=== PATIENT | female | born 1930 | race Caucasian/White ===

== ENCOUNTER 2016-12-11 02:22 | Inpatient (IN) | payer MEDICARE, BC ==
[~2016-12-11] VITALS: Ht 157.5 cm; Wt 40.4 kg
[2016-12-11] VITALS (7 sets, daily range): BP systolic 128–155; BP diastolic 68–89
[2016-12-11] MEDS ORDERED: CILOSTAZOL100 MG PO (02:50)
[2016-12-11] MEDS ORDERED: ENALAPRIL MALE2.5 MG ORAL (02:50)
[2016-12-11] MEDS ORDERED: Ampicillin/Sulbactam Sod 3 GM in NS 110 ML IVPB ONE (03:00)
--- NOTE | 2016-12-11 03:04 | Emergency Room Report ---
History of Present Illness General Chief Complaint: Pain Source: Patient Present Illness HPI Patient present with complaints of right hand swelling and redness Pain is 8/10 Patient reports ongoing for the past several days Denies any trauma Denies any fevers However her hand is feel warm to her Denies any elbow pain denies any recent travel or other trauma pain is worse with touch Allergies: Coded Allergies: CORN (Verified Allergy, Unknown, 12/11/16) Uncoded Allergies: GARBANZOS (Allergy, Unknown, 12/11/16) MUSHROOMS (Allergy, Unknown, 12/11/16) PEANU BUTTER (Allergy, Unknown, 12/11/16) STRAWBERRIES (Allergy, Unknown, 12/11/16) Patient History Past Medical History: see triage record Pertinent Family History: none Reviewed Nursing Documentation: PMH: Agreed, PSxH: Agreed Nursing Documentation-PMH Hx Hypertension: Yes Review of Systems All Other Systems: negative except mentioned in HPI Physical Exam Vital Signs Date Time Temp Pulse Resp B/P Pulse Ox O2 Delivery O2 Flow Rate FiO2 12/11/16 02:42 98.2 59 18 153/80 96 Room Air Sp02 EP Interpretation: reviewed, normal General Appearance: no apparent distress Head: normocephalic, atraumatic Eyes: bilateral eye EOMI, bilateral eye PERRL ENT: normal pharynx Neck: other - Severe kyphosis, component of scoliosis as well Respiratory: chest non-tender, lungs clear Cardiovascular #1: regular rate, rhythm, no edema Gastrointestinal: non tender, soft Musculoskeletal: other - Patient has obvious evidence of multiple arthritic changes, swelling of her joints Neurologic: alert, oriented x3, responsive Skin: other - Arthritic changes to the right hand, there is associated erythema and swelling as well however, erythema of the lateral hand as well Lymphatic: no adenopathy Medical Decision Making Diagnostic Impression: Primary Impression: Cellulitis Additional Impression: Rheumatoid arthritis ER Course Multiple differentials considered Patient's imaging study shows severe arthritic changes There is consideration for rheumatoid arthritis flareup Consideration for gout Consideration for cellulitis Patient has broad-spectrum antibiotics initiated given the area in the size of the erythema patient was admitted for further inpatient care Labs Test 12/11/16 03:10 12/11/16 03:30 White Blood Count 5.2 K/UL (4.8-10.8) Red Blood Count 5.19 M/UL (4.70-6.10) Hemoglobin 16.1 G/DL (14.2-18.0) Hematocrit 48.8 % (42.0-52.0) Mean Corpuscular Volume 94 FL (80-99) Mean Corpuscular Hemoglobin 31.0 PG (27.0-31.0) Mean Corpuscular Hemoglobin Concent 33.0 G/DL (32.0-36.0) Red Cell Distribution Width 12.3 % (11.6-14.8) Platelet Count 241 K/UL (150-450) Mean Platelet Volume 9.4 FL (6.5-10.1) Neutrophils (%) (Auto) 65.2 % (45.0-75.0) Lymphocytes (%) (Auto) 23.0 % (20.0-45.0) Monocytes (%) (Auto) 10.5 % (1.0-10.0) Eosinophils (%) (Auto) 0.3 % (0.0-3.0) Basophils (%) (Auto) 0.9 % (0.0-2.0) Sodium Level 139 mEQ/L (135-145) Potassium Level 4.1 mEQ/L (3.4-4.9) Chloride Level 98 mEQ/L (98-107) Carbon Dioxide Level 28 mEQ/L (20-30) Anion Gap 13 (5-15) Blood Urea Nitrogen 15 mg/dL (7-23) Creatinine 0.9 mg/dL (0.7-1.2) Estimat Glomerular Filtration Rate mL/min (>60) Glucose Level 105 mg/dL (74-106) Lactic Acid Level 0.60 mmol/L (0.66-2.22) Calcium Level 9.5 mg/dL (8.6-10.2) Total Bilirubin 0.9 mg/dL (0.0-1.2) Aspartate Amino Transf (AST/SGOT) 21 U/L (5-40) Alanine Aminotransferase (ALT/SGPT) 11 U/L (3-41) Alkaline Phosphatase 68 U/L (40-129) Total Creatine Kinase 92 U/L (38-174) Total Protein 7.0 g/dL (6.6-8.7) Albumin 4.2 g/dL (3.5-5.2) Globulin 2.8 g/dL Albumin/Globulin Ratio 1.5 (1.0-2.7) Urine Color Yellow Urine Appearance Clear Urine pH 6.5 (4.5-8.0) Urine Specific [place] 1.015 (1.005-1.035) Urine Protein 2+ (NEGATIVE) Urine Glucose (UA) Negative (NEGATIVE) Urine Ketones 1+ (NEGATIVE) Urine Occult Blood 2+ (NEGATIVE) Urine Nitrite Negative (NEGATIVE) Urine Bilirubin Negative (NEGATIVE) Urine Urobilinogen 1 MG/DL (0.0-1.0) Urine Leukocyte Esterase 3+ (NEGATIVE) Urine RBC 2-4 /HPF (0 - 0) Urine WBC 15-20 /HPF (0 - 0) Urine Squamous Epithelial Cells Few /LPF (NONE/OCC) Urine Bacteria Few /HPF (NONE) Other X-Ray Diagnostic Results Other X-Ray Diagnostic Results : EP Interpretation: Yes Findings: no dislocation, other - Soft tissue swelling, severe arthritic changes, several areas in the metacarpal region cannot rule out obvious fracture Number of Views: 3 - Right hand Last Vital Signs Date Time Temp Pulse Resp B/P Pulse Ox O2 Delivery O2 Flow Rate FiO2 12/11/16 02:42 98.2 59 18 153/80 96 Room Air Status: improved Disposition: ADMITTED INPATIENT Condition: Serious Referrals: NON PHYSICIAN (PCP) CHETNA DIANE D.O. Dec 11, 2016 03:04
[2016-12-11] MEDS ORDERED: Unasyn 3gm Inj ONE (03:24)
[2016-12-11 03:32] LABS: BASOPHILS % (AUTO) 0.9 % (0.0-2.0); EOSINOPHILS % (AUTO) 0.3 % (0.0-3.0); MEAN CORPUSCULAR VOLUME 94 FL (80-99); MEAN PLATELET VOLUME 9.4 FL (6.5-10.1); MONOCYTES % (AUTO) 10.5 % (1.0-10.0); NEUTROPHILS % (AUTO) 65.2 % (45.0-75.0); PLATELET COUNT 241 K/UL (150-450); RED BLOOD COUNT 5.19 M/UL (4.70-6.10); RED CELL DISTRIBUTION WIDTH 12.3 % (11.6-14.8); WHITE BLOOD COUNT 5.2 K/UL (4.8-10.8)
[2016-12-11 03:46] LABS: APPEARANCE,URINE CLEAR; KETONES,URINE 1+ (NEGATIVE); LEUKOCYTE ESTERASE ,URINE 3+ (NEGATIVE); NITRITE,URINE NEGATIVE (NEGATIVE); PH,URINE 6.5 (4.5-8.0); PROTEIN,URINE 2+ (NEGATIVE); UROBILINOGEN,URINE 1 MG/DL (0.0-1.0)
[2016-12-11 03:49] LABS: ALANINE AMINOTRANSFERASE 11 U/L (3-41); ALBUMIN/GLOBULIN RATIO 1.5 (1.0-2.7); ANION GAP 13 (5-15); ASPARTATE AMINO TRANSFERASE 21 U/L (5-40); CALCIUM 9.5 mg/dL (8.6-10.2); CARBON DIOXIDE 28 mEQ/L (20-30); CHLORIDE 98 mEQ/L (98-107); CREATININE 0.9 mg/dL (0.7-1.2); HEMOLYSIS 10; POTASSIUM 4.1 mEQ/L (3.4-4.9); SODIUM 139 mEQ/L (135-145)
[2016-12-11 04:00] LABS: CKMB 5.1 ng/mL (< 6.7)
[2016-12-11 04:01] LABS: BACTERIA,URINE FEW /HPF; SQUAMOUS EPITHELIAL CELL,UR FEW /LPF (NONE/OCC); WBC,URINE 15-20 /HPF (0 - 0)
[2016-12-11] MEDS ORDERED: LORazepam Inj 2mg/ml 1ml IV PRN (06:45)
[2016-12-11] MEDS ORDERED: Mylanta II UD 30ml ORAL PRN (06:45)
[2016-12-11] MEDS ORDERED: HYDROmorphone 1mg/ml Carpuject IVP ONE (06:45)
[2016-12-11] MEDS ORDERED: Morphine Sulfate 2mg/ml Inj IVP PRN (06:45)
[2016-12-11] MEDS: Cefepime HCl 1 GM in D5W 55 ML IV SCH (08:20)
[2016-12-11] MEDS: Heparin 5000 units/ml inj SUBQ SCH ×2 (09:00→21:56)
[2016-12-11] MEDS: Enalapril 2.5mg tab ORAL SCH ×2 (09:00→21:46)
[2016-12-11] MEDS ORDERED: Vancomycin 1gm/D5W 275ml IVPB ONE ×2 (09:00)
[2016-12-11] MEDS: Cilostazol 100mg tab ORAL SCH ×2 (10:05→18:16)
--- NOTE | 2016-12-11 10:38 | Consultation ---
Consult Note Consult Note ID CONSULT: Anita# [id number] Assessment/Plan ASSESSMENT: 86 y/o female with: // Atraumatic right hand cellulitis vs gout vs RA flare - improved - XR: pending // Possible UTI - UCx pending // Afebrile without leukocytosis // RA ?flare ( none previous in right hand ) // No ABX allergies // Full Code PLAN: - continue empiric IV vancomycin, cefepime d# / pending cultures. Transition to PO soon, maybe as early as tomorrow - check RF, uric acid, ESR, CRP - f/u cultures - f/u imaging - monitor CBC, temperatures - monitor BMP d/w daughter at bedside Thanks! Will follow ANNALEE GIORDANO Dec 11, 2016 10:38
--- NOTE | 2016-12-11 16:36 | History & Physical ---
History and Physical History & Physicial Tam Rodriguez MD Dec 11, 2016 16:36
--- NOTE | 2016-12-11 18:48 | Consultation ---
DATE OF CONSULTATION: 12/11/2016 INFECTIOUS DISEASE CONSULTATION REFERRING PHYSICIAN: Tam Rodriguez M.D. REASON FOR CONSULTATION: Cellulitis. HISTORY OF PRESENT ILLNESS: This 86-year-old female with a history of rheumatoid arthritis, admitted on 12/11/2016 with atraumatic right hand swelling, pain, erythema and warmth. X-ray is pending. She is afebrile without leukocytosis. Urinalysis also suggest possible urinary tract infection. She has been started on empiric vancomycin and cefepime. Cultures are pending and ID now consulted to assist in management. PAST MEDICAL HISTORY: 1. Rheumatoid arthritis. 2. Hypertension. 3. Peripheral vascular disease. PAST SURGICAL HISTORY: None. MEDICATIONS: 1. Vancomycin day #1. 2. Cefepime day #1. 3. Pletal. 4. Vasotec. 5. Subcutaneous heparin. ALLERGIES: 1. [place] . 2. Garbanzos. 3. Mushrooms. 4. Peanut butter. 5. Strawberries. SOCIAL HISTORY: The patient lives locally and has family involved in her care. No active tobacco, alcohol, or illicit drug abuse. FAMILY HISTORY: Noncontributory. REVIEW OF SYSTEMS: As per history of present illness. Ten systems reviewed. All pertinent positives and negatives noted. PHYSICAL EXAMINATION: GENERAL: No apparent distress. Nontoxic appearing. VITAL SIGNS: Maximum temperature 98.2 degrees, blood pressure 133/72, heart rate in the 50s, respiratory rate 20, and saturating 99% on room air. CARDIOVASCULAR: Regular rate and rhythm. No murmurs. PULMONARY: Clear to auscultation bilaterally. ABDOMEN: Bowel sounds present. Soft, nondistended, and nontender. EXTREMITIES: Right hand erythema, edema, and warmth, changes consistent with rheumatoid arthritis. LABORATORY AND DIAGNOSTIC DATA: White blood cell count 5.8, hemoglobin 16.1, and platelets 241,000. Sodium is 139, potassium 4.1, chloride 98, bicarbonate 28, BUN 15, and creatinine 0.9. Lactic acid 0.6. Liver function tests within normal limits. MICROBIOLOGY: 1. On 12/11/2016, blood culture no growth to date. 2. On 12/11/2016, urine culture no growth to date. IMAGIN. Right hand x-ray pending. 2. Arterial and venous Doppler is pending. ASSESSMENT: 1. Atraumatic right hand cellulitis versus gout versus rheumatoid arthritis flare, improved overnight. X-ray is pending. 2. Possible urinary tract infection. Urine culture is pending. 3. Afebrile without leukocytosis. 4. Rheumatoid arthritis with question flare-up. No previous cellulitis in the right hand. 5. No antibiotic allergies. 6. Full Code. PLAN: 1. Continue empiric IV vancomycin and cefepime day #1 of 7, pending cultures. Transition to oral alternatives, may be as early as tomorrow. 2. Check rheumatoid factor, uric acid, ESR and CRP. 3. Follow up cultures. 4. Follow up imaging. 5. Monitor CBC and temperatures. 6. Monitor BMP. Thank you. We will follow. Yariel Bain M.D. DR: ACOSTA JOB#: [id number] CC: Nicolette Masters M.D. Arash Alborzi, M.D
[2016-12-11] MEDS ORDERED: Zolpidem 5mg tab ORAL PRN (21:00)
[2016-12-11] MEDS ORDERED: Miralax 17gm pkt ORAL PRN (21:00)
--- NOTE | 2016-12-11 21:18 | History and Physical Report ---
DATE OF ADMISSION: 12/11/2016 CHIEF COMPLAINT: Right hand swelling and redness. HISTORY OF PRESENT ILLNESS: This is a 86-year-old very delightful female with past medical history significant for osteoporosis, osteoarthritis, hypertension, dyslipidemia, appendectomy, hysterectomy and varicose veins of lower extremities, status post of vascular procedure, who was presented to the hospital complaining about right upper extremity, right hand swelling, redness and painful. She stated pain started about 24 hours ago, got progressively worsening, unable to move the hand and the pain was to the point that tramadol was not helping and subsequently the patient decided to come to the emergency room. Shortly after initial evaluation in the emergency room, the patient was admitted to the hospital with right hand cellulitis. The patient denies any trauma. Denies any fever or chills. Complained about the right hand warm feeling and denies any loss of consciousness. Denies any suicidal or homicidal ideation. Denies any recent travel. PAST MEDICAL HISTORY/PAST SURGICAL HISTORY: As above, history of osteoarthritis, osteoporosis, hypertension, dyslipidemia, appendectomy, hysterectomy and varicose veins surgery of lower extremity. MEDICATIONS: Medications at home is significant for enalapril 2.5 mg, cilostazol 100 mg twice a day, and Norvasc 10 mg p.o. daily. ALLERGIES: , mushroom, peanuts, phenobarbital and strawberry. No known drug allergies otherwise except these. SOCIAL HISTORY: The patient is ex-smoker, quit 5 years ago 50 years pack smoking history. She drinks two shots of vodka. She lives with her daughter. She denies any substance abuse. FAMILY HISTORY: Noncontributory. REVIEW OF SYSTEMS: Mostly as above. Denies any dysuria, frequency, hematuria or hematochezia. Denies any hemoptysis or hematochezia. Denies any suicidal or homicidal ideation. She walks at home with a cane and walker occasionally. She denies any loss of consciousness. Denies any fall or trauma. Denies any double vision. Denies any bowel or urinary incontinence. PHYSICAL EXAMINATION: GENERAL: The patient awake, responsive, no acute distress. VITAL SIGNS: On admission, temperature 98.2 degrees, pulse of 89, respiration 18, and blood pressure 153/80. HEENT: Pupils are equal and reactive to light. Extraocular movements are intact. NECK: Supple. No JVD. LUNGS: Good air entry. No wheezing or rales. HEART: S1 and S2. Distant heart sounds. No murmur or gallops. ABDOMEN: Soft, nondistended, and nontender. Positive bowel sounds. RECTAL: Refused and deferred. GENITOURINARY: Refused and deferred. EXTREMITIES: No cyanosis, clubbing, or edema. Varicose veins to bilateral lower extremities. Left upper extremity is swollen, tender to touch, mildly erythematous and the patient's hand has osteoarthritis with deformity of the fingers was noted was bilateral. NEUROLOGIC: Cranial Nerves II through XII are grossly intact. The patient moving all extremities. Gait was not assessed due to the patient's status. PSYCHIATRIC: Mood evaluation, the patient is anxious. LABORATORY AND DIAGNOSTIC DATA: Laboratory admission from the ER, WBC of 5.2, hemoglobin 16, hematocrit 48 and platelets 240,000. Sodium 139, potassium 4.1, chloride 98, bicarbonate 28, BUN 15, creatinine 0.9, and glucose 105. Lactic acid 0.60. Liver function essential unremarkable. Urinalysis +2 protein, +2 occult blood, +1 ketones, 15 to 20 WBC and +3 leukocytes. ASSESSMENT: 1. Right upper extremity cellulitis. 2. Possible urinary tract infection. 3. Osteoarthritis. 4. Hypertension. 5. Dyslipidemia. 6. Osteoporosis. PLAN: Admit the patient to Medical/Surgical. Discussed with the daughter extensively at bedside. Broad-spectrum antibiotics with vancomycin as well as cefepime. We will resume home medications, pain medication, cardiac diet, heparin subcutaneous for DVT and Code Status is Full Code. Follow up with an Infectious Disease consultation with Dr. Bain. Tam Rodriguez M.D. DR: JAMEL JOB#: [id number] CC:
--- NOTE | 2016-12-11 23:01 | Consultation ---
History of Present Illness General Chief Complaint: Pain Present Illness Allergies: Coded Allergies: CORN (Verified Allergy, Unknown, 12/11/16) Uncoded Allergies: GARBANZOS (Allergy, Unknown, 12/11/16) MUSHROOMS (Allergy, Unknown, 12/11/16) PEANU BUTTER (Allergy, Unknown, 12/11/16) STRAWBERRIES (Allergy, Unknown, 12/11/16) Medication History Scheduled Cilostazol* (Cilostazol*), 100 MG PO TWICE A DAY, (Reported) Enalapril Maleate* (Enalapril Maleate*), 2.5 MG ORAL EVERY 12 HOURS, (Reported) Patient History Healthcare decision maker pt alert and oriented Resuscitation status Full Code Advanced Directive on File Physical Exam Last 24 Hour Vital Signs Date Time Temp Pulse Resp B/P Pulse Ox O2 Delivery O2 Flow Rate FiO2 12/11/16 21:46 128/77 12/11/16 20:00 97.7 19 128/77 94 Room Air 12/11/16 16:00 98.2 87 20 149/69 94 Room Air 12/11/16 12:00 97.0 54 18 128/68 95 Room Air 12/11/16 11:00 59 18 133/75 12/11/16 09:00 133/72 12/11/16 08:00 97.5 50 22 143/79 99 Room Air 12/11/16 07:38 97.5 12/11/16 07:22 98.2 52 18 155/89 96 Room Air 12/11/16 05:03 98.2 52 18 155/89 96 Room Air 12/11/16 02:42 98.2 59 18 153/80 96 Room Air Intake and Output 12/10/16 12/11/16 19:00 07:00 Intake Total 110 ml Balance 110 ml Intake IV Total 110 ml # Voids 1 Laboratory Tests Test 12/11/16 03:10 12/11/16 03:30 White Blood Count 5.2 K/UL (4.8-10.8) Red Blood Count 5.19 M/UL (4.70-6.10) Hemoglobin 16.1 G/DL (14.2-18.0) Hematocrit 48.8 % (42.0-52.0) Mean Corpuscular Volume 94 FL (80-99) Mean Corpuscular Hemoglobin 31.0 PG (27.0-31.0) Mean Corpuscular Hemoglobin Concent 33.0 G/DL (32.0-36.0) Red Cell Distribution Width 12.3 % (11.6-14.8) Platelet Count 241 K/UL (150-450) Mean Platelet Volume 9.4 FL (6.5-10.1) Neutrophils (%) (Auto) 65.2 % (45.0-75.0) Lymphocytes (%) (Auto) 23.0 % (20.0-45.0) Monocytes (%) (Auto) 10.5 % (1.0-10.0) H Eosinophils (%) (Auto) 0.3 % (0.0-3.0) Basophils (%) (Auto) 0.9 % (0.0-2.0) Sodium Level 139 mEQ/L (135-145) Potassium Level 4.1 mEQ/L (3.4-4.9) Chloride Level 98 mEQ/L (98-107) Carbon Dioxide Level 28 mEQ/L (20-30) Anion Gap 13 (5-15) Blood Urea Nitrogen 15 mg/dL (7-23) Creatinine 0.9 mg/dL (0.7-1.2) Estimat Glomerular Filtration Rate mL/min (>60) Glucose Level 105 mg/dL (74-106) Lactic Acid Level 0.60 mmol/L (0.66-2.22) L Calcium Level 9.5 mg/dL (8.6-10.2) Total Bilirubin 0.9 mg/dL (0.0-1.2) Aspartate Amino Transf (AST/SGOT) 21 U/L (5-40) Alanine Aminotransferase (ALT/SGPT) 11 U/L (3-41) Alkaline Phosphatase 68 U/L (40-129) Total Creatine Kinase 92 U/L (38-174) Creatine Kinase MB 5.1 ng/mL (< 6.7) Creatine Kinase MB Relative Index 5.5 Total Protein 7.0 g/dL (6.6-8.7) Albumin 4.2 g/dL (3.5-5.2) Globulin 2.8 g/dL Albumin/Globulin Ratio 1.5 (1.0-2.7) Urine Color Yellow Urine Appearance Clear Urine pH 6.5 (4.5-8.0) Urine Specific [place] 1.015 (1.005-1.035) Urine Protein 2+ (NEGATIVE) H Urine Glucose (UA) Negative (NEGATIVE) Urine Ketones 1+ (NEGATIVE) H Urine Occult Blood 2+ (NEGATIVE) H Urine Nitrite Negative (NEGATIVE) Urine Bilirubin Negative (NEGATIVE) Urine Urobilinogen 1 MG/DL (0.0-1.0) H Urine Leukocyte Esterase 3+ (NEGATIVE) H Urine RBC 2-4 /HPF (0 - 0) H Urine WBC 15-20 /HPF (0 - 0) H Urine Squamous Epithelial Cells Few /LPF (NONE/OCC) Urine Bacteria Few /HPF (NONE) Height (Feet): 5 Height (Inches): 2.00 Weight (Pounds): 89 Medications Current Medications Medications (Trade) Dose Ordered Sig/Beto Route PRN Reason Start Time Stop Time Status Last Admin Dose Admin Acetaminophen (Tylenol) 650 mg Q4H PRN ORAL T>100.5 12/11/16 06:45 01/10/17 06:44 Al Hydroxide/Mg Hydroxide (Mylanta II) 30 ml Q6H PRN ORAL dyspepsia 12/11/16 06:45 01/10/17 06:44 Amlodipine Besylate (Norvasc) 2.5 mg DAILY ORAL 12/12/16 18:00 01/11/17 17:59 Cefepime HCl 1 gm/ Dextrose 55 ml @ 110 mls/hr Q24H IV 12/11/16 08:00 12/18/16 07:59 12/11/16 08:20 Cilostazol (Pletal) 100 mg TWICE A DAY ORAL 12/11/16 09:00 01/10/17 08:59 12/11/16 18:16 Dextrose (Dextrose 50%) STAT PRN IV Hypoglycemia 12/11/16 06:45 01/10/17 06:44 Enalapril Maleate (Vasotec) 2.5 mg EVERY 12 HOURS ORAL 12/11/16 09:00 01/10/17 08:59 12/11/16 21:46 Heparin Sodium (Porcine) (Heparin 5000 units/ml) 5,000 units EVERY 12 HOURS SUBQ 12/11/16 09:00 01/10/17 08:59 12/11/16 21:56 Lorazepam (Ativan 2mg/ml 1ml) 0.5 mg Q4H PRN IV For Anxiety 12/11/16 06:45 12/18/16 06:44 Morphine Sulfate (Morphine Sulfate) 1 mg Q4H PRN IVP PAIN 4-10 12/11/16 06:45 12/18/16 06:44 Ondansetron HCl (Zofran) 4 mg Q6H PRN IVP Nausea & Vomiting 12/11/16 06:45 01/10/17 06:44 Polyethylene Glycol (Miralax) 17 gm HSPRN PRN ORAL Constipation 12/11/16 21:00 01/10/17 20:59 Vancomycin HCl 1 ea 1 ea DAILY PRN MISC Per rx protocol 12/11/16 06:45 01/10/17 06:44 Vancomycin HCl/ Dextrose (Vancomycin/D5W) 110 ml @ 110 mls/hr Q24H IVPB 12/12/16 09:00 12/17/16 08:59 Zolpidem Tartrate (Ambien) 5 mg HSPRN PRN ORAL Insomnia 12/11/16 21:00 01/10/17 20:59 ELIZABETH RICKS Dec 11, 2016 23:01
[2016-12-12] VITALS: BP 128/77
[2016-12-12 04:00] VITALS: BP 109/63
[2016-12-12 07:11] LABS: BASOPHILS % (AUTO) 0.6 % (0.0-2.0); LYMPHOCYTES % (AUTO) 22.8 % (20.0-45.0); MEAN CORPUSCULAR HEMOGLOBIN 31.3 PG (27.0-31.0); MEAN CORPUSCULAR HGB CONC 33.2 G/DL (32.0-36.0); MEAN CORPUSCULAR VOLUME 94 FL (80-99); MEAN PLATELET VOLUME 9.4 FL (6.5-10.1); MONOCYTES % (AUTO) 10.4 % (1.0-10.0); NEUTROPHILS % (AUTO) 65.3 % (45.0-75.0); PLATELET COUNT 219 K/UL (150-450); RED CELL DISTRIBUTION WIDTH 12.6 % (11.6-14.8)
[2016-12-12 07:20] LABS: HEMOGLOBIN A1C 5.5 % (< 6.0)
[2016-12-12 07:38] LABS: CRP QUANT 1.6 mg/dL (< 0.5); URIC ACID 5.2 mg/dL (3.0-7.5)
[2016-12-12 07:45] LABS: ALANINE AMINOTRANSFERASE 9 U/L (3-33); ALBUMIN/GLOBULIN RATIO 1.4 (1.0-2.7); ANION GAP 14 (5-15); ASPARTATE AMINO TRANSFERASE 17 U/L (5-40); CALCIUM 8.7 mg/dL (8.6-10.2); CARBON DIOXIDE 25 mEQ/L (20-30); CHLORIDE 100 mEQ/L (98-107); CHOLESTEROL 177 mg/dL (< 200); CHOLESTEROL/HDL RATIO 2.8 (3.3-4.4); CREATININE 1.2 mg/dL (0.5-0.9); HEMOLYSIS 9; LDL CHOLESTEROL (CALC.) 95 mg/dL (60-99); POTASSIUM 4.1 mEQ/L (3.4-4.9); SODIUM 139 mEQ/L (135-145); TOTAL PROTEIN 5.8 g/dL (6.6-8.7)
[2016-12-12 08:00] VITALS: BP 94/51
[2016-12-12] MEDS: Cefepime HCl 1 GM in D5W 55 ML IV SCH (08:52)
[2016-12-12] MEDS: Enalapril 2.5mg tab ORAL SCH ×2 (09:00→21:00)
[2016-12-12] MEDS: Vancomycin 500mg/D5W 110ml IVPB SCH ×2 (10:28)
[2016-12-12] MEDS: Cilostazol 100mg tab ORAL SCH ×2 (10:30→17:08)
[2016-12-12] MEDS: Heparin 5000 units/ml inj SUBQ SCH ×2 (10:31→21:18)
--- NOTE | 2016-12-12 11:11 | Infectious Diseases Prog Note ---
Assessment/Plan Assessment/Plan ASSESSMENT: 86 y/o female with: // Atraumatic right hand cellulitis vs gout vs RA flare - improved - XR: pending - uric acid WNL // Possible UTI - UCx NGTD // Afebrile without leukocytosis // RA ?flare ( none previous in right hand ) // Elevated CRP // No ABX allergies // Full Code PLAN: - ok to DC on PO keflex x5 days from ID standpoint. Will continue empiric IV vancomycin d# 2 / 7 while still inpt. DC cefepime d# 2 - f/u RF - f/u final cultures - f/u imaging - monitor CBC, temperatures - monitor BMP Subjective Allergies: Coded Allergies: CORN (Verified Allergy, Unknown, 12/11/16) Uncoded Allergies: GARBANZOS (Allergy, Unknown, 12/11/16) MUSHROOMS (Allergy, Unknown, 12/11/16) PEANU BUTTER (Allergy, Unknown, 12/11/16) STRAWBERRIES (Allergy, Unknown, 12/11/16) Subjective remains afebrile. improved Objective Vital Signs Last 24 Hour Vital Signs Date Time Temp Pulse Resp B/P Pulse Ox O2 Delivery O2 Flow Rate FiO2 12/12/16 10:20 62 94/51 12/12/16 09:00 94/51 12/12/16 08:00 97.7 62 18 94/51 90 Room Air 12/12/16 04:00 97.7 74 18 109/63 95 Room Air 12/12/16 00:00 97.7 76 19 128/77 94 Room Air 12/11/16 22:50 90 145/88 12/11/16 21:46 128/77 12/11/16 20:00 97.7 19 128/77 94 Room Air 12/11/16 16:00 98.2 87 20 149/69 94 Room Air 12/11/16 12:00 97.0 54 18 128/68 95 Room Air Height (Feet): 5 Height (Inches): 2.00 Weight (Pounds): 89 General Appearance: no acute distress Respiratory/Chest: no respiratory distress Cardiovascular: normal rate, regular rhythm Abdomen: normal bowel sounds, soft, non tender, non distended Extremities: other - right hand erythema, edema, warmth improved Microbiology Date/Time Source Procedure Growth Status 12/11/16 03:30 Urine,Clean Catch Urine Culture - Preliminary NO GROWTH AFTER 24 HOURS Resulted Laboratory Tests Test 12/12/16 04:45 White Blood Count 4.0 K/UL (4.8-10.8) L Red Blood Count 4.20 M/UL (4.20-5.40) Hemoglobin 13.2 G/DL (12.0-16.0) Hematocrit 39.6 % (37.0-47.0) Mean Corpuscular Volume 94 FL (80-99) Mean Corpuscular Hemoglobin 31.3 PG (27.0-31.0) H Mean Corpuscular Hemoglobin Concent 33.2 G/DL (32.0-36.0) Red Cell Distribution Width 12.6 % (11.6-14.8) Platelet Count 219 K/UL (150-450) Mean Platelet Volume 9.4 FL (6.5-10.1) Neutrophils (%) (Auto) 65.3 % (45.0-75.0) Lymphocytes (%) (Auto) 22.8 % (20.0-45.0) Monocytes (%) (Auto) 10.4 % (1.0-10.0) H Eosinophils (%) (Auto) 1.0 % (0.0-3.0) Basophils (%) (Auto) 0.6 % (0.0-2.0) Erythrocyte Sedimentation Rate 31 MM/HR (0-42) Sodium Level 139 mEQ/L (135-145) Potassium Level 4.1 mEQ/L (3.4-4.9) Chloride Level 100 mEQ/L (98-107) Carbon Dioxide Level 25 mEQ/L (20-30) Anion Gap 14 (5-15) Blood Urea Nitrogen 18 mg/dL (7-23) Creatinine 1.2 mg/dL (0.5-0.9) H Estimat Glomerular Filtration Rate mL/min (>60) Glucose Level 98 mg/dL (74-106) Hemoglobin A1c 5.5 % (< 6.0) Uric Acid 5.2 mg/dL (3.0-7.5) Calcium Level 8.7 mg/dL (8.6-10.2) Total Bilirubin 0.6 mg/dL (0.0-1.2) Aspartate Amino Transf (AST/SGOT) 17 U/L (5-40) Alanine Aminotransferase (ALT/SGPT) 9 U/L (3-33) Alkaline Phosphatase 53 U/L (35-104) C-Reactive Protein, Quantitative 1.6 mg/dL (< 0.5) H Total Protein 5.8 g/dL (6.6-8.7) L Albumin 3.4 g/dL (3.5-5.2) L Globulin 2.4 g/dL Albumin/Globulin Ratio 1.4 (1.0-2.7) Triglycerides Level 90 mg/dL (< 150) Cholesterol Level 177 mg/dL (< 200) LDL Cholesterol 95 mg/dL (60-99) HDL Cholesterol 64 mg/dL (> 60) H Cholesterol/HDL Ratio 2.8 (3.3-4.4) L Thyroid Stimulating Hormone (TSH) 3.060 uIU/mL (0.300-4.500) Rheumatoid Factor Screen Pending Current Medications Medications (Trade) Dose Ordered Sig/Beto Route PRN Reason Start Time Stop Time Status Last Admin Dose Admin Acetaminophen (Tylenol) 650 mg Q4H PRN ORAL T>100.5 12/11/16 06:45 01/10/17 06:44 Al Hydroxide/Mg Hydroxide (Mylanta II) 30 ml Q6H PRN ORAL dyspepsia 12/11/16 06:45 01/10/17 06:44 Amlodipine Besylate (Norvasc) 2.5 mg DAILY ORAL 12/12/16 18:00 01/11/17 17:59 Cefepime HCl 1 gm/ Dextrose 55 ml @ 110 mls/hr Q24H IV 12/11/16 08:00 12/18/16 07:59 12/12/16 08:52 Cilostazol (Pletal) 100 mg TWICE A DAY ORAL 12/11/16 09:00 01/10/17 08:59 12/12/16 10:30 Dextrose (Dextrose 50%) STAT PRN IV Hypoglycemia 12/11/16 06:45 01/10/17 06:44 Enalapril Maleate (Vasotec) 2.5 mg EVERY 12 HOURS ORAL 12/11/16 09:00 01/10/17 08:59 12/11/16 21:46 Heparin Sodium (Porcine) (Heparin 5000 units/ml) 5,000 units EVERY 12 HOURS SUBQ 12/11/16 09:00 01/10/17 08:59 12/12/16 10:31 Lorazepam (Ativan 2mg/ml 1ml) 0.5 mg Q4H PRN IV For Anxiety 12/11/16 06:45 12/18/16 06:44 Morphine Sulfate (Morphine Sulfate) 1 mg Q4H PRN IVP PAIN 4-10 12/11/16 06:45 12/18/16 06:44 Ondansetron HCl (Zofran) 4 mg Q6H PRN IVP Nausea & Vomiting 12/11/16 06:45 01/10/17 06:44 Polyethylene Glycol (Miralax) 17 gm HSPRN PRN ORAL Constipation 12/11/16 21:00 01/10/17 20:59 Vancomycin HCl 1 ea 1 ea DAILY PRN MISC Per rx protocol 12/11/16 06:45 01/10/17 06:44 Vancomycin HCl/ Dextrose (Vancomycin/D5W) 110 ml @ 110 mls/hr Q24H IVPB 12/12/16 09:00 12/17/16 08:59 12/12/16 10:28 Zolpidem Tartrate (Ambien) 5 mg HSPRN PRN ORAL Insomnia 12/11/16 21:00 01/10/17 20:59 ANNALEE GIORDANO Dec 12, 2016 11:11
[2016-12-12 12:00] VITALS: BP 106/59
--- NOTE | 2016-12-12 15:26 | Internal Med Progress Note ---
Subjective Date of Service: Dec 12, 2016 Physician Name Axel Bradley Attending Physician Tam Rodriguez MD Current Medications Medications (Trade) Dose Ordered Sig/Beto Route PRN Reason Start Time Stop Time Status Last Admin Dose Admin Acetaminophen (Tylenol) 650 mg Q4H PRN ORAL T>100.5 12/11/16 06:45 01/10/17 06:44 Al Hydroxide/Mg Hydroxide (Mylanta II) 30 ml Q6H PRN ORAL dyspepsia 12/11/16 06:45 01/10/17 06:44 Amlodipine Besylate (Norvasc) 2.5 mg DAILY ORAL 12/12/16 18:00 01/11/17 17:59 Cilostazol (Pletal) 100 mg TWICE A DAY ORAL 12/11/16 09:00 01/10/17 08:59 12/12/16 10:30 Dextrose (Dextrose 50%) STAT PRN IV Hypoglycemia 12/11/16 06:45 01/10/17 06:44 Enalapril Maleate (Vasotec) 2.5 mg EVERY 12 HOURS ORAL 12/11/16 09:00 01/10/17 08:59 12/11/16 21:46 Heparin Sodium (Porcine) (Heparin 5000 units/ml) 5,000 units EVERY 12 HOURS SUBQ 12/11/16 09:00 01/10/17 08:59 12/12/16 10:31 Lorazepam (Ativan 2mg/ml 1ml) 0.5 mg Q4H PRN IV For Anxiety 12/11/16 06:45 12/18/16 06:44 Morphine Sulfate (Morphine Sulfate) 1 mg Q4H PRN IVP PAIN 4-10 12/11/16 06:45 12/18/16 06:44 Ondansetron HCl (Zofran) 4 mg Q6H PRN IVP Nausea & Vomiting 12/11/16 06:45 01/10/17 06:44 Polyethylene Glycol (Miralax) 17 gm HSPRN PRN ORAL Constipation 12/11/16 21:00 01/10/17 20:59 Vancomycin HCl 1 ea 1 ea DAILY PRN MISC Per rx protocol 12/11/16 06:45 01/10/17 06:44 Vancomycin HCl/ Dextrose (Vancomycin/D5W) 110 ml @ 110 mls/hr Q24H IVPB 12/12/16 09:00 12/17/16 08:59 12/12/16 10:28 Zolpidem Tartrate (Ambien) 5 mg HSPRN PRN ORAL Insomnia 12/11/16 21:00 01/10/17 20:59 Allergies: Coded Allergies: CORN (Verified Allergy, Unknown, 12/11/16) Uncoded Allergies: GARBANZOS (Allergy, Unknown, 12/11/16) MUSHROOMS (Allergy, Unknown, 12/11/16) PEANU BUTTER (Allergy, Unknown, 12/11/16) STRAWBERRIES (Allergy, Unknown, 12/11/16) ROS Limited/Unobtainable: No Constitutional: Reports: no symptoms HEENT: Reports: no symptoms Cardiovascular: Reports: no symptoms Respiratory: Reports: no symptoms Gastrointestinal/Abdominal: Reports: no symptoms Genitourinary: Reports: no symptoms Neurologic/Psychiatric: Reports: other Subjective 86 YO F admitted with right hand pain. Now cellulitis right hand. Cover for Int Med-Dr Rodriguez. Objective Last Vital Signs Date Time Temp Pulse Resp B/P Pulse Ox O2 Delivery O2 Flow Rate FiO2 12/12/16 12:00 97.0 60 20 106/59 92 Room Air General Appearance: mild distress, thin EENT: PERRL/EOMI, normal ENT inspection, TMs normal Neck: non-tender, normal alignment, supple Cardiovascular: normal peripheral pulses, normal rate, regular rhythm, no gallop/murmur, no JVD Respiratory/Chest: chest wall non-tender, lungs clear, normal breath sounds, no accessory muscle use Abdomen: normal bowel sounds, non tender, soft, no organomegaly, no mass Extremities: normal range of motion, other - erythema right hand Neurologic: hogshead liner II-XII grossly normal Skin: normal pigmentation, warm/dry Laboratory Tests Test 12/12/16 04:45 White Blood Count 4.0 K/UL (4.8-10.8) L Red Blood Count 4.20 M/UL (4.20-5.40) Hemoglobin 13.2 G/DL (12.0-16.0) Hematocrit 39.6 % (37.0-47.0) Mean Corpuscular Volume 94 FL (80-99) Mean Corpuscular Hemoglobin 31.3 PG (27.0-31.0) H Mean Corpuscular Hemoglobin Concent 33.2 G/DL (32.0-36.0) Red Cell Distribution Width 12.6 % (11.6-14.8) Platelet Count 219 K/UL (150-450) Mean Platelet Volume 9.4 FL (6.5-10.1) Neutrophils (%) (Auto) 65.3 % (45.0-75.0) Lymphocytes (%) (Auto) 22.8 % (20.0-45.0) Monocytes (%) (Auto) 10.4 % (1.0-10.0) H Eosinophils (%) (Auto) 1.0 % (0.0-3.0) Basophils (%) (Auto) 0.6 % (0.0-2.0) Erythrocyte Sedimentation Rate 31 MM/HR (0-42) Sodium Level 139 mEQ/L (135-145) Potassium Level 4.1 mEQ/L (3.4-4.9) Chloride Level 100 mEQ/L (98-107) Carbon Dioxide Level 25 mEQ/L (20-30) Anion Gap 14 (5-15) Blood Urea Nitrogen 18 mg/dL (7-23) Creatinine 1.2 mg/dL (0.5-0.9) H Estimat Glomerular Filtration Rate mL/min (>60) Glucose Level 98 mg/dL (74-106) Hemoglobin A1c 5.5 % (< 6.0) Uric Acid 5.2 mg/dL (3.0-7.5) Calcium Level 8.7 mg/dL (8.6-10.2) Total Bilirubin 0.6 mg/dL (0.0-1.2) Aspartate Amino Transf (AST/SGOT) 17 U/L (5-40) Alanine Aminotransferase (ALT/SGPT) 9 U/L (3-33) Alkaline Phosphatase 53 U/L (35-104) C-Reactive Protein, Quantitative 1.6 mg/dL (< 0.5) H Total Protein 5.8 g/dL (6.6-8.7) L Albumin 3.4 g/dL (3.5-5.2) L Globulin 2.4 g/dL Albumin/Globulin Ratio 1.4 (1.0-2.7) Triglycerides Level 90 mg/dL (< 150) Cholesterol Level 177 mg/dL (< 200) LDL Cholesterol 95 mg/dL (60-99) HDL Cholesterol 64 mg/dL (> 60) H Cholesterol/HDL Ratio 2.8 (3.3-4.4) L Thyroid Stimulating Hormone (TSH) 3.060 uIU/mL (0.300-4.500) Rheumatoid Factor Screen Pending Microbiology Date/Time Source Procedure Growth Status 12/11/16 03:30 Urine,Clean Catch Urine Culture - Preliminary NO GROWTH AFTER 24 HOURS Resulted Intake and Output 12/11/16 12/12/16 19:00 07:00 Intake Total 330.000 ml Balance 330.000 ml IV Total 330.000 ml # Voids 1 Assessment/Plan Problem List: (1) Cellulitis of right hand Assessment & Plan: Continue vanco and cefepime-See ID note. (2) HTN (hypertension) Assessment & Plan: Continue amlodipine and vasotec (3) Hypercholesteremia (4) Osteoporosis AXEL BRADLEY Dec 12, 2016 15:26
[2016-12-12 16:21] VITALS: BP 107/61
[2016-12-12 20:00] VITALS: BP 104/55
--- NOTE | 2016-12-12 21:44 | Pulmonology Progress Note ---
Subjective Allergies: Coded Allergies: CORN (Verified Allergy, Unknown, 12/11/16) Uncoded Allergies: GARBANZOS (Allergy, Unknown, 12/11/16) MUSHROOMS (Allergy, Unknown, 12/11/16) PEANU BUTTER (Allergy, Unknown, 12/11/16) STRAWBERRIES (Allergy, Unknown, 12/11/16) Objective Last 24 Hour Vital Signs Date Time Temp Pulse Resp B/P Pulse Ox O2 Delivery O2 Flow Rate FiO2 12/12/16 21:00 104/55 12/12/16 20:00 97.9 15 104/55 93 Room Air 12/12/16 16:21 97.5 62 18 107/61 92 Room Air 12/12/16 12:00 97.0 60 20 106/59 92 Room Air 12/12/16 10:20 62 94/51 12/12/16 09:00 94/51 12/12/16 08:00 97.7 62 18 94/51 90 Room Air 12/12/16 04:00 97.7 74 18 109/63 95 Room Air 12/12/16 00:00 97.7 76 19 128/77 94 Room Air 12/11/16 22:50 90 145/88 12/11/16 21:46 128/77 Intake and Output 12/11/16 12/12/16 19:00 07:00 Intake Total 330.000 ml Balance 330.000 ml IV Total 330.000 ml # Voids 1 Microbiology Date/Time Source Procedure Growth Status 12/11/16 03:30 Urine,Clean Catch Urine Culture - Preliminary NO GROWTH AFTER 24 HOURS Resulted Laboratory Tests 12/12/16 04:45: White Blood Count 4.0L, Red Blood Count 4.20, Hemoglobin 13.2, Hematocrit 39.6, Mean Corpuscular Volume 94, Mean Corpuscular Hemoglobin 31.3H, Mean Corpuscular Hemoglobin Concent 33.2, Red Cell Distribution Width 12.6, Platelet Count 219, Mean Platelet Volume 9.4, Neutrophils (%) (Auto) 65.3, Lymphocytes (%) (Auto) 22.8, Monocytes (%) (Auto) 10.4H, Eosinophils (%) (Auto) 1.0, Basophils (%) ( Auto) 0.6, Erythrocyte Sedimentation Rate 31, Sodium Level 139, Potassium Level 4.1, Chloride Level 100, Carbon Dioxide Level 25, Anion Gap 14, Blood Urea Nitrogen 18, Creatinine 1.2H, Estimat Glomerular Filtration Rate , Glucose Level 98, Hemoglobin A1c 5.5, Uric Acid 5.2, Calcium Level 8.7, Total Bilirubin 0.6, Aspartate Amino Transf (AST/SGOT) 17, Alanine Aminotransferase (ALT/SGPT) 9 , Alkaline Phosphatase 53, C-Reactive Protein, Quantitative 1.6H, Total Protein 5.8L, Albumin 3.4L, Globulin 2.4, Albumin/Globulin Ratio 1.4, Triglycerides Level 90, Cholesterol Level 177, LDL Cholesterol 95, HDL Cholesterol 64H, Cholesterol/HDL Ratio 2.8L, Thyroid Stimulating Hormone (TSH) 3.060, Rheumatoid Factor Screen [Pending] Current Medications Medications (Trade) Dose Ordered Sig/Beto Route PRN Reason Start Time Stop Time Status Last Admin Dose Admin Acetaminophen (Tylenol) 650 mg Q4H PRN ORAL T>100.5 12/11/16 06:45 01/10/17 06:44 Al Hydroxide/Mg Hydroxide (Mylanta II) 30 ml Q6H PRN ORAL dyspepsia 12/11/16 06:45 01/10/17 06:44 Amlodipine Besylate (Norvasc) 2.5 mg DAILY ORAL 12/12/16 18:00 01/11/17 17:59 Cilostazol (Pletal) 100 mg TWICE A DAY ORAL 12/11/16 09:00 01/10/17 08:59 12/12/16 17:08 Dextrose (Dextrose 50%) STAT PRN IV Hypoglycemia 12/11/16 06:45 01/10/17 06:44 Enalapril Maleate (Vasotec) 2.5 mg EVERY 12 HOURS ORAL 12/11/16 09:00 01/10/17 08:59 12/11/16 21:46 Heparin Sodium (Porcine) (Heparin 5000 units/ml) 5,000 units EVERY 12 HOURS SUBQ 12/11/16 09:00 01/10/17 08:59 12/12/16 21:18 Lorazepam (Ativan 2mg/ml 1ml) 0.5 mg Q4H PRN IV For Anxiety 12/11/16 06:45 12/18/16 06:44 Morphine Sulfate (Morphine Sulfate) 1 mg Q4H PRN IVP PAIN 4-10 12/11/16 06:45 12/18/16 06:44 Ondansetron HCl (Zofran) 4 mg Q6H PRN IVP Nausea & Vomiting 12/11/16 06:45 01/10/17 06:44 Polyethylene Glycol (Miralax) 17 gm HSPRN PRN ORAL Constipation 12/11/16 21:00 01/10/17 20:59 Vancomycin HCl 1 ea 1 ea DAILY PRN MISC Per rx protocol 12/11/16 06:45 01/10/17 06:44 Vancomycin HCl/ Dextrose (Vancomycin/D5W) 110 ml @ 110 mls/hr Q24H IVPB 12/12/16 09:00 12/17/16 08:59 12/12/16 10:28 Zolpidem Tartrate (Ambien) 5 mg HSPRN PRN ORAL Insomnia 12/11/16 21:00 01/10/17 20:59 ELIZABETH RICKS Dec 12, 2016 21:44
[2016-12-13] VITALS: BP 120/65
[2016-12-13 07:35] LABS: BASOPHILS % (AUTO) 0.6 % (0.0-2.0); EOSINOPHILS % (AUTO) 1.1 % (0.0-3.0); LYMPHOCYTES % (AUTO) 30.3 % (20.0-45.0); MEAN CORPUSCULAR HEMOGLOBIN 31.5 PG (27.0-31.0); MEAN CORPUSCULAR HGB CONC 33.3 G/DL (32.0-36.0); MEAN CORPUSCULAR VOLUME 94 FL (80-99); MEAN PLATELET VOLUME 9.1 FL (6.5-10.1); MONOCYTES % (AUTO) 10.6 % (1.0-10.0); NEUTROPHILS % (AUTO) 57.4 % (45.0-75.0); PLATELET COUNT 214 K/UL (150-450); RED BLOOD COUNT 4.12 M/UL (4.20-5.40); WHITE BLOOD COUNT 4.2 K/UL (4.8-10.8)
[2016-12-13 07:51] LABS: ANION GAP 11 (5-15); CALCIUM 8.7 mg/dL (8.6-10.2); CARBON DIOXIDE 26 mEQ/L (20-30); CHLORIDE 104 mEQ/L (98-107); CREATININE 1.2 mg/dL (0.5-0.9); HEMOLYSIS 3; POTASSIUM 4.5 mEQ/L (3.4-4.9); SODIUM 141 mEQ/L (135-145)
[2016-12-13 08:45] VITALS: BP 128/67
[2016-12-13] MEDS: Heparin 5000 units/ml inj SUBQ SCH ×2 (09:49→20:27)
[2016-12-13] MEDS: Enalapril 2.5mg tab ORAL SCH ×2 (09:51→20:27)
[2016-12-13] MEDS: Cilostazol 100mg tab ORAL SCH ×2 (09:51→17:21)
[2016-12-13] MEDS: Vancomycin 500mg/D5W 110ml IVPB SCH ×2 (09:53)
--- NOTE | 2016-12-13 10:19 | Infectious Diseases Prog Note ---
Assessment/Plan Assessment/Plan ASSESSMENT: 86 y/o female with: // Atraumatic right hand cellulitis vs gout vs RA flare - improved - XR: pending - uric acid WNL // Possible UTI - UCx 10K GNR, asymptomatic // Afebrile without leukocytosis // RA ?flare ( none previous in right hand ) // Elevated CRP // No ABX allergies // Full Code PLAN: - ok to DC on PO keflex x4 days from ID standpoint. Will continue empiric IV vancomycin d# 3 / 7 while still inpt. ( 12/12 SP cefepime d# 2 ) - f/u RF - f/u final cultures - f/u imaging - monitor CBC, temperatures - monitor BMP Subjective Allergies: Coded Allergies: CORN (Verified Allergy, Unknown, 12/11/16) Uncoded Allergies: GARBANZOS (Allergy, Unknown, 12/11/16) MUSHROOMS (Allergy, Unknown, 12/11/16) PEANU BUTTER (Allergy, Unknown, 12/11/16) STRAWBERRIES (Allergy, Unknown, 12/11/16) Subjective remains afebrile. improved Objective Vital Signs Last 24 Hour Vital Signs Date Time Temp Pulse Resp B/P Pulse Ox O2 Delivery O2 Flow Rate FiO2 12/13/16 09:51 119/79 12/13/16 08:45 97.9 80 18 128/67 93 Room Air 12/13/16 00:00 97.3 16 120/65 93 Room Air 12/12/16 21:00 104/55 12/12/16 20:00 97.9 15 104/55 93 Room Air 12/12/16 16:21 97.5 62 18 107/61 92 Room Air 12/12/16 12:00 97.0 60 20 106/59 92 Room Air 12/12/16 10:20 62 94/51 Height (Feet): 5 Height (Inches): 2.00 Weight (Pounds): 89 General Appearance: no acute distress Respiratory/Chest: no respiratory distress Cardiovascular: normal rate, regular rhythm Abdomen: normal bowel sounds, soft, non tender, non distended Extremities: other - right hand erythema, edema, warmth improved Microbiology Date/Time Source Procedure Growth Status 12/11/16 03:20 Blood Blood Culture - Preliminary NO GROWTH AFTER 48 HOURS Resulted 12/11/16 03:10 Blood Blood Culture - Preliminary NO GROWTH AFTER 48 HOURS Resulted 12/11/16 03:30 Urine,Clean Catch Urine Culture - Preliminary Gram Negative Bacillus 1 Resulted Laboratory Tests Test 12/13/16 06:00 White Blood Count 4.2 K/UL (4.8-10.8) L Red Blood Count 4.12 M/UL (4.20-5.40) L Hemoglobin 13.0 G/DL (12.0-16.0) Hematocrit 38.9 % (37.0-47.0) Mean Corpuscular Volume 94 FL (80-99) Mean Corpuscular Hemoglobin 31.5 PG (27.0-31.0) H Mean Corpuscular Hemoglobin Concent 33.3 G/DL (32.0-36.0) Red Cell Distribution Width 12.0 % (11.6-14.8) Platelet Count 214 K/UL (150-450) Mean Platelet Volume 9.1 FL (6.5-10.1) Neutrophils (%) (Auto) 57.4 % (45.0-75.0) Lymphocytes (%) (Auto) 30.3 % (20.0-45.0) Monocytes (%) (Auto) 10.6 % (1.0-10.0) H Eosinophils (%) (Auto) 1.1 % (0.0-3.0) Basophils (%) (Auto) 0.6 % (0.0-2.0) Sodium Level 141 mEQ/L (135-145) Potassium Level 4.5 mEQ/L (3.4-4.9) Chloride Level 104 mEQ/L (98-107) Carbon Dioxide Level 26 mEQ/L (20-30) Anion Gap 11 (5-15) Blood Urea Nitrogen 19 mg/dL (7-23) Creatinine 1.2 mg/dL (0.5-0.9) H Estimat Glomerular Filtration Rate mL/min (>60) Glucose Level 90 mg/dL (74-106) Calcium Level 8.7 mg/dL (8.6-10.2) Current Medications Medications (Trade) Dose Ordered Sig/Beto Route PRN Reason Start Time Stop Time Status Last Admin Dose Admin Acetaminophen (Tylenol) 650 mg Q4H PRN ORAL T>100.5 12/11/16 06:45 01/10/17 06:44 Al Hydroxide/Mg Hydroxide (Mylanta II) 30 ml Q6H PRN ORAL dyspepsia 12/11/16 06:45 01/10/17 06:44 Amlodipine Besylate (Norvasc) 2.5 mg DAILY ORAL 12/12/16 18:00 01/11/17 17:59 Cilostazol (Pletal) 100 mg TWICE A DAY ORAL 12/11/16 09:00 01/10/17 08:59 12/13/16 09:51 Dextrose (Dextrose 50%) STAT PRN IV Hypoglycemia 12/11/16 06:45 01/10/17 06:44 Enalapril Maleate (Vasotec) 2.5 mg EVERY 12 HOURS ORAL 12/11/16 09:00 01/10/17 08:59 12/13/16 09:51 Heparin Sodium (Porcine) (Heparin 5000 units/ml) 5,000 units EVERY 12 HOURS SUBQ 12/11/16 09:00 01/10/17 08:59 12/13/16 09:49 Lorazepam (Ativan 2mg/ml 1ml) 0.5 mg Q4H PRN IV For Anxiety 12/11/16 06:45 12/18/16 06:44 Morphine Sulfate (Morphine Sulfate) 1 mg Q4H PRN IVP PAIN 4-10 12/11/16 06:45 12/18/16 06:44 Ondansetron HCl (Zofran) 4 mg Q6H PRN IVP Nausea & Vomiting 12/11/16 06:45 01/10/17 06:44 Polyethylene Glycol (Miralax) 17 gm HSPRN PRN ORAL Constipation 12/11/16 21:00 01/10/17 20:59 Vancomycin HCl 1 ea 1 ea DAILY PRN MISC Per rx protocol 12/11/16 06:45 01/10/17 06:44 Vancomycin HCl/ Dextrose (Vancomycin/D5W) 110 ml @ 110 mls/hr Q24H IVPB 12/12/16 09:00 12/17/16 08:59 12/13/16 09:53 Zolpidem Tartrate (Ambien) 5 mg HSPRN PRN ORAL Insomnia 12/11/16 21:00 01/10/17 20:59 ANNALEE GIORDANO Dec 13, 2016 10:19
[2016-12-13 12:20] VITALS: BP 121/43
--- NOTE | 2016-12-13 13:49 | Internal Med Progress Note ---
Subjective Date of Service: Dec 13, 2016 Physician Name Elly Bradley Attending Physician Tam Rodriguez MD Current Medications Medications (Trade) Dose Ordered Sig/Beto Route PRN Reason Start Time Stop Time Status Last Admin Dose Admin Acetaminophen (Tylenol) 650 mg Q4H PRN ORAL T>100.5 12/11/16 06:45 01/10/17 06:44 Al Hydroxide/Mg Hydroxide (Mylanta II) 30 ml Q6H PRN ORAL dyspepsia 12/11/16 06:45 01/10/17 06:44 Amlodipine Besylate (Norvasc) 2.5 mg DAILY ORAL 12/12/16 18:00 01/11/17 17:59 Cilostazol (Pletal) 100 mg TWICE A DAY ORAL 12/11/16 09:00 01/10/17 08:59 12/13/16 09:51 Dextrose (Dextrose 50%) STAT PRN IV Hypoglycemia 12/11/16 06:45 01/10/17 06:44 Enalapril Maleate (Vasotec) 2.5 mg EVERY 12 HOURS ORAL 12/11/16 09:00 01/10/17 08:59 12/13/16 09:51 Heparin Sodium (Porcine) (Heparin 5000 units/ml) 5,000 units EVERY 12 HOURS SUBQ 12/11/16 09:00 01/10/17 08:59 12/13/16 09:49 Lorazepam (Ativan 2mg/ml 1ml) 0.5 mg Q4H PRN IV For Anxiety 12/11/16 06:45 12/18/16 06:44 Morphine Sulfate (Morphine Sulfate) 1 mg Q4H PRN IVP PAIN 4-10 12/11/16 06:45 12/18/16 06:44 Ondansetron HCl (Zofran) 4 mg Q6H PRN IVP Nausea & Vomiting 12/11/16 06:45 01/10/17 06:44 Polyethylene Glycol (Miralax) 17 gm HSPRN PRN ORAL Constipation 12/11/16 21:00 01/10/17 20:59 Vancomycin HCl 1 ea 1 ea DAILY PRN MISC Per rx protocol 12/11/16 06:45 01/10/17 06:44 Vancomycin HCl/ Dextrose (Vancomycin/D5W) 110 ml @ 110 mls/hr Q24H IVPB 12/12/16 09:00 12/17/16 08:59 12/13/16 09:53 Zolpidem Tartrate (Ambien) 5 mg HSPRN PRN ORAL Insomnia 12/11/16 21:00 01/10/17 20:59 Allergies: Coded Allergies: CORN (Verified Allergy, Unknown, 12/11/16) Uncoded Allergies: GARBANZOS (Allergy, Unknown, 12/11/16) MUSHROOMS (Allergy, Unknown, 12/11/16) PEANU BUTTER (Allergy, Unknown, 12/11/16) STRAWBERRIES (Allergy, Unknown, 12/11/16) ROS Limited/Unobtainable: No Constitutional: Reports: no symptoms HEENT: Reports: no symptoms Cardiovascular: Reports: no symptoms Respiratory: Reports: no symptoms Genitourinary: Reports: no symptoms Neurologic/Psychiatric: Reports: no symptoms Subjective 86 YO F admitted with right hand pain. Now cellulitis right hand. Cover for Int Edgar-Dr Rodriguez. Objective Last Vital Signs Date Time Temp Pulse Resp B/P Pulse Ox O2 Delivery O2 Flow Rate FiO2 12/13/16 12:20 97.9 64 18 121/43 95 Room Air Laboratory Tests Test 12/13/16 06:00 White Blood Count 4.2 K/UL (4.8-10.8) L Red Blood Count 4.12 M/UL (4.20-5.40) L Hemoglobin 13.0 G/DL (12.0-16.0) Hematocrit 38.9 % (37.0-47.0) Mean Corpuscular Volume 94 FL (80-99) Mean Corpuscular Hemoglobin 31.5 PG (27.0-31.0) H Mean Corpuscular Hemoglobin Concent 33.3 G/DL (32.0-36.0) Red Cell Distribution Width 12.0 % (11.6-14.8) Platelet Count 214 K/UL (150-450) Mean Platelet Volume 9.1 FL (6.5-10.1) Neutrophils (%) (Auto) 57.4 % (45.0-75.0) Lymphocytes (%) (Auto) 30.3 % (20.0-45.0) Monocytes (%) (Auto) 10.6 % (1.0-10.0) H Eosinophils (%) (Auto) 1.1 % (0.0-3.0) Basophils (%) (Auto) 0.6 % (0.0-2.0) Sodium Level 141 mEQ/L (135-145) Potassium Level 4.5 mEQ/L (3.4-4.9) Chloride Level 104 mEQ/L (98-107) Carbon Dioxide Level 26 mEQ/L (20-30) Anion Gap 11 (5-15) Blood Urea Nitrogen 19 mg/dL (7-23) Creatinine 1.2 mg/dL (0.5-0.9) H Estimat Glomerular Filtration Rate mL/min (>60) Glucose Level 90 mg/dL (74-106) Calcium Level 8.7 mg/dL (8.6-10.2) Microbiology Date/Time Source Procedure Growth Status 12/11/16 03:20 Blood Blood Culture - Preliminary NO GROWTH AFTER 48 HOURS Resulted 12/11/16 03:10 Blood Blood Culture - Preliminary NO GROWTH AFTER 48 HOURS Resulted 12/11/16 03:30 Urine,Clean Catch Urine Culture - Preliminary Gram Negative Bacillus 1 Resulted Intake and Output 12/12/16 12/13/16 19:00 07:00 Intake Total 960 ml 200 ml Balance 960 ml 200 ml Intake Oral 960 ml Other 200 ml # Voids 4 2 Objective General Appearance: mild distress, thin EENT: PERRL/EOMI, normal ENT inspection, TMs normal Neck: non-tender, normal alignment, supple Cardiovascular: normal peripheral pulses, normal rate, regular rhythm, no gallop/murmur, no JVD Respiratory/Chest: chest wall non-tender, lungs clear, normal breath sounds, no accessory muscle use Abdomen: normal bowel sounds, non tender, soft, no organomegaly, no mass Extremities: normal range of motion, other - erythema right hand 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 D/C on oral keflex-See ID note. (2) HTN (hypertension) Assessment & Plan: Continue amlodipine and vasotec (3) Hypercholesteremia (4) Osteoporosis Status: stable Assessment/Plan Discharge planning: Discharge in am 12/14/16 with [facility] ELLY BRADLEY Dec 13, 2016 13:49
[2016-12-13 16:00] VITALS: BP 110/51
[2016-12-13 20:16] VITALS: BP 120/80
--- NOTE | 2016-12-13 22:57 | Pulmonology Progress Note ---
Subjective Allergies: Coded Allergies: CORN (Verified Allergy, Unknown, 12/11/16) Uncoded Allergies: GARBANZOS (Allergy, Unknown, 12/11/16) MUSHROOMS (Allergy, Unknown, 12/11/16) PEANU BUTTER (Allergy, Unknown, 12/11/16) STRAWBERRIES (Allergy, Unknown, 12/11/16) Objective Last 24 Hour Vital Signs Date Time Temp Pulse Resp B/P Pulse Ox O2 Delivery O2 Flow Rate FiO2 12/13/16 20:27 120/80 12/13/16 20:16 98.1 60 19 120/80 93 Room Air 12/13/16 16:00 97.9 53 17 110/51 94 Room Air 12/13/16 12:20 97.9 64 18 121/43 95 Room Air 12/13/16 09:51 119/79 12/13/16 09:00 74 98/60 12/13/16 08:45 97.9 80 18 128/67 93 Room Air 12/13/16 00:00 97.3 16 120/65 93 Room Air Intake and Output 12/12/16 12/13/16 19:00 07:00 Intake Total 960 ml 200 ml Balance 960 ml 200 ml Intake Oral 960 ml Other 200 ml # Voids 4 2 Microbiology Date/Time Source Procedure Growth Status 12/11/16 03:20 Blood Blood Culture - Preliminary NO GROWTH AFTER 48 HOURS Resulted 12/11/16 03:10 Blood Blood Culture - Preliminary NO GROWTH AFTER 48 HOURS Resulted 12/11/16 03:30 Urine,Clean Catch Urine Culture - Preliminary Gram Negative Bacillus 1 Resulted Laboratory Tests 12/13/16 06:00: White Blood Count 4.2L, Red Blood Count 4.12L, Hemoglobin 13.0, Hematocrit 38.9 , Mean Corpuscular Volume 94, Mean Corpuscular Hemoglobin 31.5H, Mean Corpuscular Hemoglobin Concent 33.3, Red Cell Distribution Width 12.0, Platelet Count 214, Mean Platelet Volume 9.1, Neutrophils (%) (Auto) 57.4, Lymphocytes (% ) (Auto) 30.3, Monocytes (%) (Auto) 10.6H, Eosinophils (%) (Auto) 1.1, Basophils (%) (Auto) 0.6, Sodium Level 141, Potassium Level 4.5, Chloride Level 104, Carbon Dioxide Level 26, Anion Gap 11, Blood Urea Nitrogen 19, Creatinine 1.2H, Estimat Glomerular Filtration Rate , Glucose Level 90, Calcium Level 8.7 Current Medications Medications (Trade) Dose Ordered Sig/Beto Route PRN Reason Start Time Stop Time Status Last Admin Dose Admin Acetaminophen (Tylenol) 650 mg Q4H PRN ORAL T>100.5 12/11/16 06:45 01/10/17 06:44 Al Hydroxide/Mg Hydroxide (Mylanta II) 30 ml Q6H PRN ORAL dyspepsia 12/11/16 06:45 01/10/17 06:44 Amlodipine Besylate (Norvasc) 2.5 mg DAILY ORAL 12/12/16 18:00 01/11/17 17:59 Cilostazol (Pletal) 100 mg TWICE A DAY ORAL 12/11/16 09:00 01/10/17 08:59 12/13/16 17:21 Dextrose (Dextrose 50%) STAT PRN IV Hypoglycemia 12/11/16 06:45 01/10/17 06:44 Enalapril Maleate (Vasotec) 2.5 mg EVERY 12 HOURS ORAL 12/11/16 09:00 01/10/17 08:59 12/13/16 09:51 Heparin Sodium (Porcine) (Heparin 5000 units/ml) 5,000 units EVERY 12 HOURS SUBQ 12/11/16 09:00 01/10/17 08:59 12/13/16 20:27 Lorazepam (Ativan 2mg/ml 1ml) 0.5 mg Q4H PRN IV For Anxiety 12/11/16 06:45 12/18/16 06:44 Morphine Sulfate (Morphine Sulfate) 1 mg Q4H PRN IVP PAIN 4-10 12/11/16 06:45 12/18/16 06:44 Ondansetron HCl (Zofran) 4 mg Q6H PRN IVP Nausea & Vomiting 12/11/16 06:45 01/10/17 06:44 12/13/16 17:23 Polyethylene Glycol (Miralax) 17 gm HSPRN PRN ORAL Constipation 12/11/16 21:00 01/10/17 20:59 12/13/16 20:23 Vancomycin HCl 1 ea 1 ea DAILY PRN MISC Per rx protocol 12/11/16 06:45 01/10/17 06:44 Vancomycin HCl/ Dextrose (Vancomycin/D5W) 110 ml @ 110 mls/hr Q24H IVPB 12/12/16 09:00 12/17/16 08:59 12/13/16 09:53 Zolpidem Tartrate (Ambien) 5 mg HSPRN PRN ORAL Insomnia 12/11/16 21:00 01/10/17 20:59 ELIZABETH RICKS Dec 13, 2016 22:57
[2016-12-14] VITALS: BP 101/57
[2016-12-14 03:57] VITALS: BP 126/81
[2016-12-14 08:00] VITALS: BP 122/59
[2016-12-14] MEDS: Enalapril 2.5mg tab ORAL SCH ×2 (09:00→20:53)
[2016-12-14] MEDS: Heparin 5000 units/ml inj SUBQ SCH ×2 (09:27→21:03)
[2016-12-14] MEDS: Cilostazol 100mg tab ORAL SCH ×2 (09:27→17:19)
--- NOTE | 2016-12-14 09:29 | Infectious Diseases Prog Note ---
Assessment/Plan Assessment/Plan ASSESSMENT: 86 y/o female with: // Atraumatic right hand cellulitis vs gout vs RA flare - improved - XR: pending - uric acid, RF WNL // Possible UTI - UCx 10K P.mirabilis, asymptomatic // Afebrile without leukocytosis // RA ?flare ( none previous in right hand ) - RF WNL // Elevated CRP // No ABX allergies // Full Code PLAN: - ok to DC on PO keflex x3 days from ID standpoint. Will continue empiric IV vancomycin d# 4 / 7 while still inpt. ( 12/12 SP cefepime d# 2 ) - f/u final cultures - f/u imaging - monitor CBC, temperatures - monitor BMP Subjective Allergies: Coded Allergies: CORN (Verified Allergy, Unknown, 12/11/16) Uncoded Allergies: GARBANZOS (Allergy, Unknown, 12/11/16) MUSHROOMS (Allergy, Unknown, 12/11/16) PEANU BUTTER (Allergy, Unknown, 12/11/16) STRAWBERRIES (Allergy, Unknown, 12/11/16) Subjective remains afebrile. improved for possible DC Objective Vital Signs Last 24 Hour Vital Signs Date Time Temp Pulse Resp B/P Pulse Ox O2 Delivery O2 Flow Rate FiO2 12/14/16 03:57 98.1 96 18 126/81 95 Room Air 12/14/16 00:00 97.3 50 18 101/57 94 Room Air 12/13/16 20:27 120/80 12/13/16 20:16 98.1 60 19 120/80 93 Room Air 12/13/16 16:00 97.9 53 17 110/51 94 Room Air 12/13/16 12:20 97.9 64 18 121/43 95 Room Air 12/13/16 09:51 119/79 Height (Feet): 5 Height (Inches): 2.00 Weight (Pounds): 89 General Appearance: no acute distress Respiratory/Chest: no respiratory distress Cardiovascular: normal rate, regular rhythm Abdomen: normal bowel sounds, soft, non tender, non distended Laboratory Tests Test 12/14/16 08:45 White Blood Count Pending Red Blood Count Pending Hemoglobin Pending Hematocrit Pending Mean Corpuscular Volume Pending Mean Corpuscular Hemoglobin Pending Mean Corpuscular Hemoglobin Concent Pending Red Cell Distribution Width Pending Platelet Count Pending Mean Platelet Volume Pending Neutrophils (%) (Auto) Pending Lymphocytes (%) (Auto) Pending Monocytes (%) (Auto) Pending Eosinophils (%) (Auto) Pending Basophils (%) (Auto) Pending Sodium Level Pending Potassium Level Pending Chloride Level Pending Carbon Dioxide Level Pending Blood Urea Nitrogen Pending Creatinine Pending Estimat Glomerular Filtration Rate Pending Glucose Level Pending Calcium Level Pending Vancomycin Level Trough Pending Current Medications Medications (Trade) Dose Ordered Sig/Beto Route PRN Reason Start Time Stop Time Status Last Admin Dose Admin Acetaminophen (Tylenol) 650 mg Q4H PRN ORAL T>100.5 12/11/16 06:45 01/10/17 06:44 Al Hydroxide/Mg Hydroxide (Mylanta II) 30 ml Q6H PRN ORAL dyspepsia 12/11/16 06:45 01/10/17 06:44 Amlodipine Besylate (Norvasc) 2.5 mg DAILY ORAL 12/12/16 18:00 01/11/17 17:59 Cilostazol (Pletal) 100 mg TWICE A DAY ORAL 12/11/16 09:00 01/10/17 08:59 12/13/16 17:21 Dextrose (Dextrose 50%) STAT PRN IV Hypoglycemia 12/11/16 06:45 01/10/17 06:44 Enalapril Maleate (Vasotec) 2.5 mg EVERY 12 HOURS ORAL 12/11/16 09:00 01/10/17 08:59 12/13/16 09:51 Heparin Sodium (Porcine) (Heparin 5000 units/ml) 5,000 units EVERY 12 HOURS SUBQ 12/11/16 09:00 01/10/17 08:59 12/13/16 20:27 Lorazepam (Ativan 2mg/ml 1ml) 0.5 mg Q4H PRN IV For Anxiety 12/11/16 06:45 12/18/16 06:44 Morphine Sulfate (Morphine Sulfate) 1 mg Q4H PRN IVP PAIN 4-10 12/11/16 06:45 12/18/16 06:44 Ondansetron HCl (Zofran) 4 mg Q6H PRN IVP Nausea & Vomiting 12/11/16 06:45 01/10/17 06:44 12/13/16 17:23 Polyethylene Glycol (Miralax) 17 gm HSPRN PRN ORAL Constipation 12/11/16 21:00 01/10/17 20:59 12/13/16 20:23 Vancomycin HCl 1 ea 1 ea DAILY PRN MISC Per rx protocol 12/11/16 06:45 01/10/17 06:44 Vancomycin HCl/ Dextrose (Vancomycin/D5W) 110 ml @ 110 mls/hr Q24H IVPB 12/12/16 09:00 12/17/16 08:59 12/13/16 09:53 Zolpidem Tartrate (Ambien) 5 mg HSPRN PRN ORAL Insomnia 12/11/16 21:00 01/10/17 20:59 ANNALEE GIORDANO Dec 14, 2016 09:29
[2016-12-14 09:31] LABS: MEAN CORPUSCULAR HEMOGLOBIN 31.3 PG (27.0-31.0); MEAN CORPUSCULAR VOLUME 95 FL (80-99); MEAN PLATELET VOLUME 8.7 FL (6.5-10.1); PLATELET COUNT 206 K/UL (150-450); RED BLOOD COUNT 4.38 M/UL (4.20-5.40); RED CELL DISTRIBUTION WIDTH 12.3 % (11.6-14.8)
[2016-12-14 09:48] LABS: ANION GAP 13 (5-15); CALCIUM 8.5 mg/dL (8.6-10.2); CARBON DIOXIDE 25 mEQ/L (20-30); CHLORIDE 103 mEQ/L (98-107); CREATININE 1.2 mg/dL (0.5-0.9); HEMOLYSIS 4; SODIUM 141 mEQ/L (135-145)
[2016-12-14] MEDS: Vancomycin 500mg/D5W 110ml IVPB SCH ×2 (11:23)
[2016-12-14 11:49] LABS: EOSINOPHILS % (MANUAL) 2 % (0-3); LYMPHOCYTES % (MANUAL) 35 % (20-45); NEUTROPHILS % (MANUAL) 56 % (45-75); TOTAL CELLS COUNTED 100
[2016-12-14 11:50] LABS: BAND NEUTROPHILS % (MANUAL) 0 % (0-8); BASOPHILS % (MANUAL) 0 % (0-2); PLATELET ESTIMATE ADEQUATE; PLATELET MORPHOLOGY NORMAL
[2016-12-14 12:00] VITALS: BP 110/61
--- NOTE | 2016-12-14 12:41 | Internal Med Progress Note ---
Subjective Date of Service: Dec 14, 2016 Physician Name Axel Bradley Attending Physician Tam Rodriguez MD Current Medications Medications (Trade) Dose Ordered Sig/Beto Route PRN Reason Start Time Stop Time Status Last Admin Dose Admin Acetaminophen (Tylenol) 650 mg Q4H PRN ORAL T>100.5 12/11/16 06:45 01/10/17 06:44 Al Hydroxide/Mg Hydroxide (Mylanta II) 30 ml Q6H PRN ORAL dyspepsia 12/11/16 06:45 01/10/17 06:44 Amlodipine Besylate (Norvasc) 2.5 mg DAILY ORAL 12/12/16 18:00 01/11/17 17:59 Cilostazol (Pletal) 100 mg TWICE A DAY ORAL 12/11/16 09:00 01/10/17 08:59 12/14/16 09:27 Dextrose (Dextrose 50%) STAT PRN IV Hypoglycemia 12/11/16 06:45 01/10/17 06:44 Enalapril Maleate (Vasotec) 2.5 mg EVERY 12 HOURS ORAL 12/11/16 09:00 01/10/17 08:59 12/13/16 09:51 Heparin Sodium (Porcine) (Heparin 5000 units/ml) 5,000 units EVERY 12 HOURS SUBQ 12/11/16 09:00 01/10/17 08:59 12/14/16 09:27 Lorazepam (Ativan 2mg/ml 1ml) 0.5 mg Q4H PRN IV For Anxiety 12/11/16 06:45 12/18/16 06:44 Morphine Sulfate (Morphine Sulfate) 1 mg Q4H PRN IVP PAIN 4-10 12/11/16 06:45 12/18/16 06:44 Ondansetron HCl (Zofran) 4 mg Q6H PRN IVP Nausea & Vomiting 12/11/16 06:45 01/10/17 06:44 12/13/16 17:23 Polyethylene Glycol (Miralax) 17 gm HSPRN PRN ORAL Constipation 12/11/16 21:00 01/10/17 20:59 12/13/16 20:23 Vancomycin HCl 1 ea 1 ea DAILY PRN MISC Per rx protocol 12/11/16 06:45 01/10/17 06:44 Vancomycin HCl/ Dextrose (Vancomycin/D5W) 110 ml @ 110 mls/hr Q24H IVPB 12/12/16 09:00 12/17/16 08:59 12/14/16 11:23 Zolpidem Tartrate (Ambien) 5 mg HSPRN PRN ORAL Insomnia 12/11/16 21:00 01/10/17 20:59 Allergies: Coded Allergies: CORN (Verified Allergy, Unknown, 12/11/16) Uncoded Allergies: GARBANZOS (Allergy, Unknown, 12/11/16) MUSHROOMS (Allergy, Unknown, 12/11/16) PEANU BUTTER (Allergy, Unknown, 12/11/16) STRAWBERRIES (Allergy, Unknown, 12/11/16) ROS Limited/Unobtainable: No Constitutional: Reports: no symptoms HEENT: Reports: no symptoms Cardiovascular: Reports: no symptoms Respiratory: Reports: no symptoms Gastrointestinal/Abdominal: Reports: no symptoms Genitourinary: Reports: no symptoms Neurologic/Psychiatric: Reports: no symptoms Subjective 86 YO F admitted with right hand pain. Now cellulitis right hand. C/O right arm itching and redness. Cover for Int Med-Dr Rodriguez. Objective Last Vital Signs Date Time Temp Pulse Resp B/P Pulse Ox O2 Delivery O2 Flow Rate FiO2 12/14/16 09:00 78 107/61 12/14/16 08:00 97.7 18 96 12/14/16 03:57 Room Air Laboratory Tests Test 12/14/16 08:45 White Blood Count 3.0 K/UL (4.8-10.8) L Red Blood Count 4.38 M/UL (4.20-5.40) Hemoglobin 13.7 G/DL (12.0-16.0) Hematocrit 41.6 % (37.0-47.0) Mean Corpuscular Volume 95 FL (80-99) Mean Corpuscular Hemoglobin 31.3 PG (27.0-31.0) H Mean Corpuscular Hemoglobin Concent 33.0 G/DL (32.0-36.0) Red Cell Distribution Width 12.3 % (11.6-14.8) Platelet Count 206 K/UL (150-450) Mean Platelet Volume 8.7 FL (6.5-10.1) Neutrophils (%) (Auto) % (45.0-75.0) Lymphocytes (%) (Auto) % (20.0-45.0) Monocytes (%) (Auto) % (1.0-10.0) Eosinophils (%) (Auto) % (0.0-3.0) Basophils (%) (Auto) % (0.0-2.0) Differential Total Cells Counted 100 Neutrophils % (Manual) 56 % (45-75) Lymphocytes % (Manual) 35 % (20-45) Monocytes % (Manual) 7 % (1-10) Eosinophils % (Manual) 2 % (0-3) Basophils % (Manual) 0 % (0-2) Band Neutrophils 0 % (0-8) Platelet Estimate Adequate Platelet Morphology Normal Red Blood Cell Morphology Normal Sodium Level 141 mEQ/L (135-145) Potassium Level 4.0 mEQ/L (3.4-4.9) Chloride Level 103 mEQ/L (98-107) Carbon Dioxide Level 25 mEQ/L (20-30) Anion Gap 13 (5-15) Blood Urea Nitrogen 20 mg/dL (7-23) Creatinine 1.2 mg/dL (0.5-0.9) H Estimat Glomerular Filtration Rate mL/min (>60) Glucose Level 122 mg/dL (74-106) H Calcium Level 8.5 mg/dL (8.6-10.2) L Vancomycin Level Trough 11.5 ug/mL (5.0-12.0) Intake and Output 12/13/16 12/14/16 19:00 07:00 Intake Total 840 ml 540 ml Balance 840 ml 540 ml Intake Oral 840 ml 540 ml # Voids 3 4 # Bowel Movements 1 Objective General Appearance: mild distress, thin EENT: PERRL/EOMI, normal ENT inspection, TMs normal Neck: non-tender, normal alignment, supple Cardiovascular: normal peripheral pulses, normal rate, regular rhythm, no gallop/murmur, no JVD Respiratory/Chest: chest wall non-tender, lungs clear, normal breath sounds, no accessory muscle use Abdomen: normal bowel sounds, non tender, soft, no organomegaly, no mass Extremities: normal range of motion, other - erythema right hand 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 D/C on oral keflex-See ID note. (2) HTN (hypertension) Assessment & Plan: Continue amlodipine and vasotec (3) Hypercholesteremia (4) Osteoporosis Status: stable Assessment/Plan Discharge planning: Discharge in am 12/14/16 with [facility] AXEL BRADLEY Dec 14, 2016 12:41
[2016-12-14] MEDS ORDERED: DiphenhydrAMINE 50mg/ml Inj IVP PRN (12:45)
[2016-12-14] MEDS: Lactulose 20gm/30ml UDC ORAL SCH ×2 (14:27→17:19)
[2016-12-14] MEDS: Docusate 100mg tablet ORAL SCH ×2 (14:27→17:19)
[2016-12-14 16:00] VITALS: BP 130/67
[2016-12-14 20:00] VITALS: BP 137/79
--- NOTE | 2016-12-14 23:38 | Pulmonology Progress Note ---
Subjective Allergies: Coded Allergies: CORN (Verified Allergy, Unknown, 12/11/16) Uncoded Allergies: GARBANZOS (Allergy, Unknown, 12/11/16) MUSHROOMS (Allergy, Unknown, 12/11/16) PEANU BUTTER (Allergy, Unknown, 12/11/16) STRAWBERRIES (Allergy, Unknown, 12/11/16) Objective Last 24 Hour Vital Signs Date Time Temp Pulse Resp B/P Pulse Ox O2 Delivery O2 Flow Rate FiO2 12/14/16 20:53 137/79 12/14/16 20:00 97.9 78 18 137/79 94 Room Air 12/14/16 16:00 97.7 58 18 130/67 92 Room Air 12/14/16 12:00 97.9 18 110/61 94 Room Air 12/14/16 12:00 57 12/14/16 09:00 78 107/61 12/14/16 09:00 107/61 12/14/16 08:00 97.7 73 18 122/59 96 12/14/16 03:57 98.1 96 18 126/81 95 Room Air 12/14/16 00:00 97.3 50 18 101/57 94 Room Air Intake and Output 12/13/16 12/14/16 19:00 07:00 Intake Total 840 ml 540 ml Balance 840 ml 540 ml Intake Oral 840 ml 540 ml # Voids 3 4 # Bowel Movements 1 Laboratory Tests 12/14/16 08:45: White Blood Count 3.0L, Red Blood Count 4.38, Hemoglobin 13.7, Hematocrit 41.6, Mean Corpuscular Volume 95, Mean Corpuscular Hemoglobin 31.3H, Mean Corpuscular Hemoglobin Concent 33.0, Red Cell Distribution Width 12.3, Platelet Count 206, Mean Platelet Volume 8.7, Neutrophils (%) (Auto) , Lymphocytes (%) (Auto) , Monocytes (%) (Auto) , Eosinophils (%) (Auto) , Basophils (%) (Auto) , Differential Total Cells Counted 100, Neutrophils % (Manual) 56, Lymphocytes % ( Manual) 35, Monocytes % (Manual) 7, Eosinophils % (Manual) 2, Basophils % ( Manual) 0, Band Neutrophils 0, Platelet Estimate Adequate, Platelet Morphology Normal, Red Blood Cell Morphology Normal, Sodium Level 141, Potassium Level 4.0 , Chloride Level 103, Carbon Dioxide Level 25, Anion Gap 13, Blood Urea Nitrogen 20, Creatinine 1.2H, Estimat Glomerular Filtration Rate , Glucose Level 122H, Calcium Level 8.5L, Vancomycin Level Trough 11.5 Current Medications Medications (Trade) Dose Ordered Sig/Beto Route PRN Reason Start Time Stop Time Status Last Admin Dose Admin Acetaminophen (Tylenol) 650 mg Q4H PRN ORAL T>100.5 12/11/16 06:45 01/10/17 06:44 Al Hydroxide/Mg Hydroxide (Mylanta II) 30 ml Q6H PRN ORAL dyspepsia 12/11/16 06:45 01/10/17 06:44 12/14/16 19:52 Amlodipine Besylate (Norvasc) 2.5 mg DAILY ORAL 12/12/16 18:00 01/11/17 17:59 Cilostazol (Pletal) 100 mg TWICE A DAY ORAL 12/11/16 09:00 01/10/17 08:59 12/14/16 17:19 Dextrose (Dextrose 50%) STAT PRN IV Hypoglycemia 12/11/16 06:45 01/10/17 06:44 Diphenhydramine HCl (Benadryl) 25 mg EVERY 4 HOURS PRN IVP Itching 12/14/16 12:45 01/13/17 12:44 Docusate Sodium (Colace) 100 mg TID ORAL 12/14/16 14:00 01/13/17 13:59 12/14/16 17:19 Enalapril Maleate (Vasotec) 2.5 mg EVERY 12 HOURS ORAL 12/11/16 09:00 01/10/17 08:59 12/14/16 20:53 Heparin Sodium (Porcine) (Heparin 5000 units/ml) 5,000 units EVERY 12 HOURS SUBQ 12/11/16 09:00 01/10/17 08:59 12/14/16 21:03 Lactulose (Cephulac) 30 gm THREE TIMES A DAY ORAL 12/14/16 14:00 01/13/17 13:59 12/14/16 17:19 Lorazepam (Ativan 2mg/ml 1ml) 0.5 mg Q4H PRN IV For Anxiety 12/11/16 06:45 12/18/16 06:44 Morphine Sulfate (Morphine Sulfate) 1 mg Q4H PRN IVP PAIN 4-10 12/11/16 06:45 12/18/16 06:44 Ondansetron HCl (Zofran) 4 mg Q6H PRN IVP Nausea & Vomiting 12/11/16 06:45 01/10/17 06:44 12/14/16 20:53 Polyethylene Glycol (Miralax) 17 gm HSPRN PRN ORAL Constipation 12/11/16 21:00 01/10/17 20:59 12/13/16 20:23 Vancomycin HCl 1 ea 1 ea DAILY PRN MISC Per rx protocol 12/11/16 06:45 01/10/17 06:44 Vancomycin HCl/ Dextrose (Vancomycin/D5W) 110 ml @ 110 mls/hr Q24H IVPB 12/12/16 09:00 12/17/16 08:59 12/14/16 11:23 Zolpidem Tartrate (Ambien) 5 mg HSPRN PRN ORAL Insomnia 12/11/16 21:00 01/10/17 20:59 ELIZABETH RICKS Dec 14, 2016 23:38
[2016-12-15] VITALS: BP 146/85
[2016-12-15 04:00] VITALS: BP 135/74
--- NOTE | 2016-12-15 04:58 | Infectious Diseases Prog Note ---
Assessment/Plan Assessment/Plan ASSESSMENT: 86 y/o female with: // Atraumatic right hand cellulitis vs gout vs RA flare - improved - XR: pending - uric acid, RF WNL // Possible UTI - UCx 10K P.mirabilis, asymptomatic // Afebrile without leukocytosis // RA ?flare ( none previous in right hand ) - RF WNL // Elevated CRP // No ABX allergies // Full Code PLAN: - ok to DC on PO keflex x 2 days from ID standpoint. Will continue empiric IV vancomycin d# 4 / 7 while still inpt. ( 12/12 SP cefepime d# 2 ) - monitor CBC, temperatures - monitor BMP Subjective Constitutional: Denies: anorexia, chills, drenching sweats, fatigue, fever, no symptoms, other Allergies: Coded Allergies: CORN (Verified Allergy, Unknown, 12/11/16) Uncoded Allergies: GARBANZOS (Allergy, Unknown, 12/11/16) MUSHROOMS (Allergy, Unknown, 12/11/16) PEANU BUTTER (Allergy, Unknown, 12/11/16) STRAWBERRIES (Allergy, Unknown, 12/11/16) Objective Vital Signs Last 24 Hour Vital Signs Date Time Temp Pulse Resp B/P Pulse Ox O2 Delivery O2 Flow Rate FiO2 12/15/16 04:00 97.7 70 18 135/74 95 Room Air 12/15/16 00:00 97.5 69 20 146/85 93 Room Air 12/14/16 20:53 137/79 12/14/16 20:00 97.9 78 18 137/79 94 Room Air 12/14/16 16:00 97.7 58 18 130/67 92 Room Air 12/14/16 12:00 97.9 18 110/61 94 Room Air 12/14/16 12:00 57 12/14/16 09:00 78 107/61 12/14/16 09:00 107/61 12/14/16 08:00 97.7 73 18 122/59 96 Height (Feet): 5 Height (Inches): 2.00 Weight (Pounds): 89 HEENT: atraumatic Respiratory/Chest: lungs clear Cardiovascular: normal rate Abdomen: soft, non tender Laboratory Tests Test 12/14/16 08:45 White Blood Count 3.0 K/UL (4.8-10.8) L Red Blood Count 4.38 M/UL (4.20-5.40) Hemoglobin 13.7 G/DL (12.0-16.0) Hematocrit 41.6 % (37.0-47.0) Mean Corpuscular Volume 95 FL (80-99) Mean Corpuscular Hemoglobin 31.3 PG (27.0-31.0) H Mean Corpuscular Hemoglobin Concent 33.0 G/DL (32.0-36.0) Red Cell Distribution Width 12.3 % (11.6-14.8) Platelet Count 206 K/UL (150-450) Mean Platelet Volume 8.7 FL (6.5-10.1) Neutrophils (%) (Auto) % (45.0-75.0) Lymphocytes (%) (Auto) % (20.0-45.0) Monocytes (%) (Auto) % (1.0-10.0) Eosinophils (%) (Auto) % (0.0-3.0) Basophils (%) (Auto) % (0.0-2.0) Differential Total Cells Counted 100 Neutrophils % (Manual) 56 % (45-75) Lymphocytes % (Manual) 35 % (20-45) Monocytes % (Manual) 7 % (1-10) Eosinophils % (Manual) 2 % (0-3) Basophils % (Manual) 0 % (0-2) Band Neutrophils 0 % (0-8) Platelet Estimate Adequate Platelet Morphology Normal Red Blood Cell Morphology Normal Sodium Level 141 mEQ/L (135-145) Potassium Level 4.0 mEQ/L (3.4-4.9) Chloride Level 103 mEQ/L (98-107) Carbon Dioxide Level 25 mEQ/L (20-30) Anion Gap 13 (5-15) Blood Urea Nitrogen 20 mg/dL (7-23) Creatinine 1.2 mg/dL (0.5-0.9) H Estimat Glomerular Filtration Rate mL/min (>60) Glucose Level 122 mg/dL (74-106) H Calcium Level 8.5 mg/dL (8.6-10.2) L Vancomycin Level Trough 11.5 ug/mL (5.0-12.0) Current Medications Medications (Trade) Dose Ordered Sig/Beto Route PRN Reason Start Time Stop Time Status Last Admin Dose Admin Acetaminophen (Tylenol) 650 mg Q4H PRN ORAL T>100.5 12/11/16 06:45 01/10/17 06:44 Al Hydroxide/Mg Hydroxide (Mylanta II) 30 ml Q6H PRN ORAL dyspepsia 12/11/16 06:45 01/10/17 06:44 12/14/16 19:52 Amlodipine Besylate (Norvasc) 2.5 mg DAILY ORAL 12/12/16 18:00 01/11/17 17:59 Cilostazol (Pletal) 100 mg TWICE A DAY ORAL 12/11/16 09:00 01/10/17 08:59 12/14/16 17:19 Dextrose (Dextrose 50%) STAT PRN IV Hypoglycemia 12/11/16 06:45 01/10/17 06:44 Diphenhydramine HCl (Benadryl) 25 mg EVERY 4 HOURS PRN IVP Itching 12/14/16 12:45 01/13/17 12:44 Docusate Sodium (Colace) 100 mg TID ORAL 12/14/16 14:00 01/13/17 13:59 12/14/16 17:19 Enalapril Maleate (Vasotec) 2.5 mg EVERY 12 HOURS ORAL 12/11/16 09:00 01/10/17 08:59 12/14/16 20:53 Heparin Sodium (Porcine) (Heparin 5000 units/ml) 5,000 units EVERY 12 HOURS SUBQ 12/11/16 09:00 01/10/17 08:59 12/14/16 21:03 Lactulose (Cephulac) 30 gm THREE TIMES A DAY ORAL 12/14/16 14:00 01/13/17 13:59 12/14/16 17:19 Lorazepam (Ativan 2mg/ml 1ml) 0.5 mg Q4H PRN IV For Anxiety 12/11/16 06:45 12/18/16 06:44 Morphine Sulfate (Morphine Sulfate) 1 mg Q4H PRN IVP PAIN 4-10 12/11/16 06:45 12/18/16 06:44 Ondansetron HCl (Zofran) 4 mg Q6H PRN IVP Nausea & Vomiting 12/11/16 06:45 01/10/17 06:44 12/14/16 20:53 Polyethylene Glycol (Miralax) 17 gm HSPRN PRN ORAL Constipation 12/11/16 21:00 01/10/17 20:59 12/13/16 20:23 Vancomycin HCl 1 ea 1 ea DAILY PRN MISC Per rx protocol 12/11/16 06:45 01/10/17 06:44 Vancomycin HCl/ Dextrose (Vancomycin/D5W) 110 ml @ 110 mls/hr Q24H IVPB 12/12/16 09:00 12/17/16 08:59 12/14/16 11:23 Zolpidem Tartrate (Ambien) 5 mg HSPRN PRN ORAL Insomnia 12/11/16 21:00 01/10/17 20:59 TERRI PINEDO M.D. Dec 15, 2016 04:58
[2016-12-15 07:02] LABS: BASOPHILS % (AUTO) 0.6 % (0.0-2.0); EOSINOPHILS % (AUTO) 1.2 % (0.0-3.0); LYMPHOCYTES % (AUTO) 25.2 % (20.0-45.0); MEAN CORPUSCULAR HEMOGLOBIN 31.1 PG (27.0-31.0); MEAN CORPUSCULAR HGB CONC 32.9 G/DL (32.0-36.0); MEAN CORPUSCULAR VOLUME 95 FL (80-99); MEAN PLATELET VOLUME 8.8 FL (6.5-10.1); MONOCYTES % (AUTO) 10.1 % (1.0-10.0); NEUTROPHILS % (AUTO) 62.9 % (45.0-75.0); PLATELET COUNT 208 K/UL (150-450); RED BLOOD COUNT 4.35 M/UL (4.20-5.40); RED CELL DISTRIBUTION WIDTH 12.5 % (11.6-14.8); WHITE BLOOD COUNT 3.9 K/UL (4.8-10.8)
[2016-12-15 07:21] LABS: ANION GAP 14 (5-15); CALCIUM 8.8 mg/dL (8.6-10.2); CARBON DIOXIDE 25 mEQ/L (20-30); CHLORIDE 102 mEQ/L (98-107); CREATININE 1.2 mg/dL (0.5-0.9); HEMOLYSIS 8; POTASSIUM 4.3 mEQ/L (3.4-4.9); SODIUM 141 mEQ/L (135-145)
[2016-12-15 08:00] VITALS: BP 119/77
[2016-12-15] MEDS: Lactulose 20gm/30ml UDC ORAL SCH ×3 (09:00→18:00)
[2016-12-15] MEDS: Docusate 100mg tablet ORAL SCH ×3 (09:39→18:33)
[2016-12-15] MEDS: Cilostazol 100mg tab ORAL SCH ×2 (09:40→18:34)
[2016-12-15] MEDS: Enalapril 2.5mg tab ORAL SCH (09:40)
[2016-12-15] MEDS: Vancomycin 500mg/D5W 110ml IVPB SCH ×2 (09:41)
[2016-12-15] MEDS: Heparin 5000 units/ml inj SUBQ SCH (09:42)
[2016-12-15 12:00] VITALS: BP 142/82
[2016-12-15 13:32] VITALS: BP 102/69
[2016-12-15] MEDS ORDERED: CEPHALEXIN500 MG ORAL (14:51)
[2016-12-15 16:00] VITALS: BP 94/53
--- NOTE | 2016-12-15 16:51 | Internal Med Progress Note ---
Subjective Date of Service: Dec 15, 2016 Physician Name Elly Bradley Attending Physician Tam Rodriguez MD Current Medications Medications (Trade) Dose Ordered Sig/Beto Route PRN Reason Start Time Stop Time Status Last Admin Dose Admin Acetaminophen (Tylenol) 650 mg Q4H PRN ORAL T>100.5 12/11/16 06:45 01/10/17 06:44 Al Hydroxide/Mg Hydroxide (Mylanta II) 30 ml Q6H PRN ORAL dyspepsia 12/11/16 06:45 01/10/17 06:44 12/14/16 19:52 Amlodipine Besylate (Norvasc) 2.5 mg DAILY ORAL 12/12/16 18:00 01/11/17 17:59 Cilostazol (Pletal) 100 mg TWICE A DAY ORAL 12/11/16 09:00 01/10/17 08:59 12/15/16 09:40 Dextrose (Dextrose 50%) STAT PRN IV Hypoglycemia 12/11/16 06:45 01/10/17 06:44 Diphenhydramine HCl (Benadryl) 25 mg EVERY 4 HOURS PRN IVP Itching 12/14/16 12:45 01/13/17 12:44 Docusate Sodium (Colace) 100 mg TID ORAL 12/14/16 14:00 01/13/17 13:59 12/15/16 13:37 Enalapril Maleate (Vasotec) 2.5 mg EVERY 12 HOURS ORAL 12/11/16 09:00 01/10/17 08:59 12/15/16 09:40 Heparin Sodium (Porcine) (Heparin 5000 units/ml) 5,000 units EVERY 12 HOURS SUBQ 12/11/16 09:00 01/10/17 08:59 12/15/16 09:42 Lactulose (Cephulac) 30 gm THREE TIMES A DAY ORAL 12/14/16 14:00 01/13/17 13:59 12/14/16 17:19 Lorazepam (Ativan 2mg/ml 1ml) 0.5 mg Q4H PRN IV For Anxiety 12/11/16 06:45 12/18/16 06:44 Morphine Sulfate (Morphine Sulfate) 1 mg Q4H PRN IVP PAIN 4-10 12/11/16 06:45 12/18/16 06:44 Ondansetron HCl (Zofran) 4 mg Q6H PRN IVP Nausea & Vomiting 12/11/16 06:45 01/10/17 06:44 12/14/16 20:53 Polyethylene Glycol (Miralax) 17 gm HSPRN PRN ORAL Constipation 12/11/16 21:00 01/10/17 20:59 12/13/16 20:23 Vancomycin HCl 1 ea 1 ea DAILY PRN MISC Per rx protocol 12/11/16 06:45 01/10/17 06:44 Vancomycin HCl/ Dextrose (Vancomycin/D5W) 110 ml @ 110 mls/hr Q24H IVPB 12/12/16 09:00 12/17/16 08:59 12/15/16 09:41 Zolpidem Tartrate (Ambien) 5 mg HSPRN PRN ORAL Insomnia 12/11/16 21:00 01/10/17 20:59 Allergies: Coded Allergies: CORN (Verified Allergy, Unknown, 12/11/16) Uncoded Allergies: GARBANZOS (Allergy, Unknown, 12/11/16) MUSHROOMS (Allergy, Unknown, 12/11/16) PEANU BUTTER (Allergy, Unknown, 12/11/16) STRAWBERRIES (Allergy, Unknown, 12/11/16) ROS Limited/Unobtainable: No Constitutional: Reports: no symptoms HEENT: Reports: no symptoms Cardiovascular: Reports: no symptoms Respiratory: Reports: no symptoms Gastrointestinal/Abdominal: Reports: no symptoms Genitourinary: Reports: no symptoms Neurologic/Psychiatric: Reports: no symptoms Subjective 86 YO F admitted with right hand pain. Now cellulitis right hand. Cover for Int Edgar-Dr Rodriguez. Objective Last Vital Signs Date Time Temp Pulse Resp B/P Pulse Ox O2 Delivery O2 Flow Rate FiO2 12/15/16 13:32 95 102/69 12/15/16 12:00 97.0 19 96 Room Air Laboratory Tests Test 12/15/16 05:35 White Blood Count 3.9 K/UL (4.8-10.8) L Red Blood Count 4.35 M/UL (4.20-5.40) Hemoglobin 13.5 G/DL (12.0-16.0) Hematocrit 41.1 % (37.0-47.0) Mean Corpuscular Volume 95 FL (80-99) Mean Corpuscular Hemoglobin 31.1 PG (27.0-31.0) H Mean Corpuscular Hemoglobin Concent 32.9 G/DL (32.0-36.0) Red Cell Distribution Width 12.5 % (11.6-14.8) Platelet Count 208 K/UL (150-450) Mean Platelet Volume 8.8 FL (6.5-10.1) Neutrophils (%) (Auto) 62.9 % (45.0-75.0) Lymphocytes (%) (Auto) 25.2 % (20.0-45.0) Monocytes (%) (Auto) 10.1 % (1.0-10.0) H Eosinophils (%) (Auto) 1.2 % (0.0-3.0) Basophils (%) (Auto) 0.6 % (0.0-2.0) Sodium Level 141 mEQ/L (135-145) Potassium Level 4.3 mEQ/L (3.4-4.9) Chloride Level 102 mEQ/L (98-107) Carbon Dioxide Level 25 mEQ/L (20-30) Anion Gap 14 (5-15) Blood Urea Nitrogen 18 mg/dL (7-23) Creatinine 1.2 mg/dL (0.5-0.9) H Estimat Glomerular Filtration Rate mL/min (>60) Glucose Level 83 mg/dL (74-106) Calcium Level 8.8 mg/dL (8.6-10.2) Intake and Output 12/14/16 12/15/16 19:00 07:00 Intake Total 480 ml 240 ml Balance 480 ml 240 ml Intake Oral 480 ml 240 ml # Voids 1 3 Objective General Appearance: mild distress, thin EENT: PERRL/EOMI, normal ENT inspection, TMs normal Neck: non-tender, normal alignment, supple Cardiovascular: normal peripheral pulses, normal rate, regular rhythm, no gallop/murmur, no JVD Respiratory/Chest: chest wall non-tender, lungs clear, normal breath sounds, no accessory muscle use Abdomen: normal bowel sounds, non tender, soft, no organomegaly, no mass Extremities: normal range of motion, other - erythema right hand 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 D/C on oral keflex-See ID note. (2) HTN (hypertension) Assessment & Plan: Continue amlodipine and vasotec (3) Hypercholesteremia (4) Osteoporosis Status: stable Assessment/Plan Discharge planning: Discharge today 12/15/16. ELLY BRADLEY Dec 15, 2016 16:51
--- NOTE | 2016-12-16 21:19 | Discharge Summary ---
Discharge Summary Hospital Course Date of Admission Dec 11, 2016 at 03:27 Date of Discharge Dec 15, 2016 at 20:00 Admitting Diagnosis right hand cellulitis HPI Gema Paredes is a 86 year old female who was admitted on Dec 11, 2016 at 03: 27 for Right Hand Cellulitis Hospital Course [id number] Discharge Discharge Disposition Patient was discharged to Home with Home Health(06) Discharge Diagnoses: Nata Robertson NP Dec 16, 2016 21:19
--- NOTE | 2016-12-17 02:58 | Discharge Summary 2 SIG ---
DATE OF ADMISSION: 12/11/2016 DATE OF DISCHARGE: 12/15/2016 CONSULTANTS: 1. Jeb Weston M.D. 2. Amadeo Hedrick M.D. BRIEF HOSPITAL COURSE: The patient is an 86-year-old delightful female with history of osteoporosis, osteoarthritis, hypertension, dyslipidemia, appendectomy, hysterectomy and varicose veins of the lower extremities status post vascular procedure, who presented to the hospital complaining of right upper extremity right hand swelling and redness that started about a day prior that has gotten progressively worse and unable to move the hand. Pain medications were not helping. On evaluation at ED, the patient was admitted for right hand cellulitis and was started empirically on IV vancomycin and cefepime. Uric acid and rheumatoid factor was within normal limits. Venous duplex of lower extremity was negative. Urine culture showed growth of Proteus and was discharged on p.o. Keflex. The patient was eventually discharged home. FINAL DIAGNOSES: 1. Acute cellulitis of right hand. 2. Hypertension. 3. Hypercholesterolemia. 4. Osteoporosis. 5. Possible urinary tract infection. Axel Tierney M.D. I have been assigned to dictate discharge summary on this account and I was not involved in the patient's management. Nata Robertson N.P. DR: RADHA JOB#: [id number] CC:
--- NOTE | 2016-12-23 10:34 | Diagnostic Imaging Report ---
APPROVED REPORT CPT Code: 06364 Symptoms Comments: Pain RIGHT LEG: Common femoral artery waveform analysis is within normal limits at rest. 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 Color flow duplex sonography also reveals an occlusion in the distal femoral artery. Reconstitution is noted distally at the level of the adductor canal. The popliteal artery is patent. The tibioperoneal trunk was not well visualized. The distal posterior and anterior tibial arteries are patent. Doppler waveform analysis is monophasic, consistent with moderate ischemia at rest. LEFT LEG: Common femoral artery waveform analysis is within normal limits at rest. 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 There is no evidence of occlusion within these segments. The popliteal artery is patent. The tibioperoneal trunk was not well visualized. The distal posterior and anterior tibial arteries are patent. Doppler waveform analysis is monophasic, consistent with moderate ischemia at rest.
--- NOTE | 2016-12-23 10:35 | Diagnostic Imaging Report ---
APPROVED REPORT CPT Code: 04593 Present Symptoms Lower Extremity Pain: Varicose Veins BILATERAL: Imaging reveals a patent deep venous system bilaterally. There is no evidence of thrombus within the femoral, popliteal or tibial segments. The greater saphenous veins are also within normal limits. Doppler indicates normal spontaneous flow within these segments.
--- NOTE | 2016-12-28 16:07 | Diagnostic Imaging Report ---
Indications: Right hand pain Technique: 3 views right hand. Findings: Comparison: None No fracture, dislocation, joint space widening , lytic destruction, periosteal reaction , surrounding soft tissue swelling/foreign body/gas, or other acute changes are identified. Multiple interphalangeal and metacarpophalangeal, first carpometacarpal, scaphotrapezoid joints are narrowed with subchondral sclerosis and marginal osteophyte formation. No associated periarticular demineralization or marginal erosions demonstrated. Suggestion of mild widening of the scapholunate space. Irregular calcifications in region of trigone fibrocartilage complex. IMPRESSION: No evidence of acute abnormality the right hand Severe multifocal osteoarthritis Questionable insufficiency of the scapholunate ligament [place] fibrocartilage complex calcification may represent deposition disease
== END 2016-12-15 20:00 | disposition home or self-care (01) | DRG 603 ==
LOC: EDSEX 02:35 → EMR 02:35 → 4W 03:27 → EDBEDREQ 05:10
DX: L03.113 Cellulitis of right upper limb (principal); N39.0 Urinary tract infection, site not specified; I73.9 Peripheral vascular disease, unspecified; M19.90 Unspecified osteoarthritis, unspecified site; I10 Essential (primary) hypertension; M81.0 Age-related osteoporosis without current pathological fracture; E78.00 Pure hypercholesterolemia, unspecified; Z87.891 Personal history of nicotine dependence; M06.9 Rheumatoid arthritis, unspecified
CPT/HCPCS: 36415; 80048; 80053; 80061; 80202; 81003; 82550; 82553; 82962; 83036; 83605; 84443; 84550; 85007; 85025; 85651; 86140; 86431; 87040; 87086; 87181; 93925; 93970; J2405